=== PATIENT | female | born 1960 | race Caucasian/White ===

== ENCOUNTER 2020-04-27 | Outpatient (REF) | payer MEDICARE, OTHER, SELFPAY ==
[2020-05-03 17:07] LABS: HPV mRNA E6/E7 rflx Not Detected (Not Detected)
== END 2020-04-27 00:01 | disposition home or self-care (01) ==
LOC: HO.LNP
PROVIDERS: Visit Provider Obstetrics & Gynecology
DX: Z12.4 Encounter for screening for malignant neoplasm of cervix (principal); Z78.0 Asymptomatic menopausal state; Z12.31 Encounter for screening mammogram for malignant neoplasm of breast
CPT/HCPCS: 87624; 88142

== ENCOUNTER → 2020-04-27 08:32 | Outpatient (BNVA) | payer MEDICARE, SELFPAY | PROVIDERS: Visit Provider Obstetrics & Gynecology ==

== ENCOUNTER 2020-05-01 11:20 | Outpatient (REF) | payer MEDICARE, SELFPAY | END 2020-05-01 11:21 | disposition home or self-care (01) | LOC: HO.LAB 11:20 | PROVIDERS: Visit Provider Obstetrics & Gynecology | DX: Z13.89 Encounter for screening for other disorder (principal) ==

== ENCOUNTER 2020-07-05 10:35 | Outpatient (REF) | payer MEDICARE, OTHER, SELFPAY ==
[2020-07-05 14:41] LABS: TSH reflex Free T4 11.93 uIU/mL (0.32-4.0)
[2020-07-05 15:29] LABS: Free T4 (Free Thyroxine) 0.98 ng/dL (0.71-1.85)
== END 2020-07-05 10:36 | disposition home or self-care (01) ==
LOC: HO.LAB 10:35
PROVIDERS: PCP Nurse Practitioner Family; Visit Provider Nurse Practitioner Family
DX: E03.9 Hypothyroidism, unspecified (principal)
CPT/HCPCS: 36415; 84439; 84443

== ENCOUNTER 2020-07-16 09:31 | Outpatient (REF) | payer MEDICARE, OTHER, SELFPAY ==
--- NOTE | ~2020-07-16 | MM_ITS ---
EXAMINATION: MM SCREENING DIGITAL BREAST TOMOSYNTHESIS, BILATERAL CLINICAL INFORMATION: Screening. Asymptomatic. The lifetime risk of breast cancer based on the Tyrer-Cuzick Model is 7%. COMPARISON: Mammography: 07/28/2018, 07/08/2017, 06/18/2016 TECHNIQUE: Digital breast tomosynthesis is performed in both the craniocaudal and mediolateral oblique views along with computer-aided detection (CAD). Synthesized 2D images are generated from the tomosynthesis. Additional right MLO view is provided. FINDINGS: There are scattered areas of fibroglandular density (ACR BI-RADS breast composition Category b). There are no significant masses, abnormal calcifications, or other abnormalities. Parenchymal pattern is similar to prior studies. MM/MM tomosynthesis screening BI IMPRESSION: No mammographic evidence of malignancy. ASSESSMENT: BI-RADS 1: Negative RECOMMENDATION: Routine annual mammography screening. This patient's information was entered into a reminder system with a target due date for their next mammogram.
== END 2020-07-16 09:32 | disposition home or self-care (01) ==
LOC: HO.MAMMO 09:31
PROVIDERS: PCP Nurse Practitioner Family; Visit Provider Obstetrics & Gynecology
DX: Z12.31 Encounter for screening mammogram for malignant neoplasm of breast (principal)
CPT/HCPCS: 77063; 77067

== ENCOUNTER 2020-07-28 09:16 | Outpatient (REF) | payer MEDICARE, OTHER, SELFPAY ==
--- NOTE | ~2020-07-28 | XR_ITS ---
EXAMINATION: XR RIBS, LEFT CLINICAL INFORMATION: Pleurodynia COMPARISON: Previous chest CTA December 2018 and chest and right rib x-rays August 2017 TECHNIQUE: 3 views of the left ribs were obtained. FINDINGS: The cardiac and mediastinal contours are stable. The lungs are clear. There is no pleural effusion or pneumothorax. No left rib fracture is seen. There are degenerative changes of the thoracic spine. There is a catheter seen in the right chest and upper abdomen probably representing a SPECIAL LOAN OFFICER shunt catheter. This is unchanged. XR/XR ribs LT min 3V w CXR1V IMPRESSION: No evidence for acute disease in the chest. No rib fracture seen.
== END 2020-07-28 09:17 | disposition home or self-care (01) ==
LOC: HO.HMGCX 09:16
PROVIDERS: PCP Nurse Practitioner Family; Visit Provider Physician Assistant
DX: R07.81 Pleurodynia (principal)
CPT/HCPCS: 71101

== ENCOUNTER 2020-09-19 12:26 | Outpatient (REF) | payer MEDICARE, OTHER, SELFPAY ==
[2020-09-19 14:34] LABS: Alanine Aminotransferase 10 U/L (0-31); Albumin Level 4.1 g/dL (3.5-5.0); Alkaline Phosphatase 90 U/L (39-117); Anion Gap 12 (12-20); Aspartate Amino Transferase 15 U/L (5-31); Bilirubin Total 0.2 mg/dL (0.0-1.0); Blood Urea Nitrogen 11 mg/dL (9-16); Calcium 8.9 mg/dL (8.4-10.2); Carbon Dioxide 23 mmol/L (22-29); Chloride 113 mmol/L (96-108); Estimated Glomerular Filt Rate > 60; Glucose Fasting 79 mg/dL (60-99); Potassium 4.1 mmol/L (3.3-5.1); Sodium 144 mmol/L (135-145); Total Protein 6.8 g/dL (6.5-8.0)
[2020-09-19 14:56] LABS: TSH reflex Free T4 1.34 uIU/mL (0.32-4.0)
== END 2020-09-19 12:27 | disposition home or self-care (01) ==
LOC: HO.HMGCLDS 12:26
PROVIDERS: PCP Nurse Practitioner Family; Visit Provider Nurse Practitioner Family
DX: E03.9 Hypothyroidism, unspecified (principal)
CPT/HCPCS: 36415; 80053; 84443

== ENCOUNTER 2020-10-30 09:54 | Outpatient (REF) | payer MEDICARE, OTHER, SELFPAY ==
[2020-10-30 11:19] LABS: MANUAL DIFF FLAG NO
[2020-10-30 11:30] LABS: Basophils Percent Auto 0.5 % (0-2); Eosinophils Absolute Auto 0.1 X10*3/uL (0.0-0.4); Eosinophils Percent Auto 1.4 % (0-4); Hematocrit 38.5 % (37-47); Hemoglobin 12.5 g/dl (12.0-16.0); Imm Gran Abs Auto 0.03 X10*3/uL (0.00-0.03); Imm Gran Pct Auto 0.4 % (0.0-0.4); Lymphocytes Absolute Auto 1.6 X10*3/uL (1.2-4.9); Lymphocytes Percent Auto 19.8 % (20-40); Mean Corpuscular HGB Conc 32.5 g/dl (31.0-35.0); Mean Corpuscular Hemoglobin 29.7 pg (27.0-33.0); Mean Corpuscular Volume 91.4 fL (80-98); Mean Platelet Volume 10.3 fL (9.4-12.3); Monocytes Absolute Auto 0.4 X10*3/uL (0.1-1.2); Monocytes Percent Auto 5.3 % (2-11); Neutrophils Absolute Auto 5.9 X10*3/uL (2.0-8.3); Neutrophils Percent Auto 72.6 % (45-73); Platelet Count 227 X10*3/uL (160-400); Red Blood Count 4.21 X10*6/uL (4.20-5.50); Red Cell Distribution Width 14.8 % (11.0-16.0); White Blood Count 8.1 X10*3/uL (4.8-10.8)
[2020-10-30 11:56] LABS: Alanine Aminotransferase 13 U/L (0-31); Albumin Level 4.2 g/dL (3.5-5.0); Alkaline Phosphatase 99 U/L (39-117); Anion Gap 13 (12-20); Aspartate Amino Transferase 17 U/L (5-31); Bilirubin Total 0.5 mg/dL (0.0-1.0); Blood Urea Nitrogen 10 mg/dL (9-16); Calcium 9.1 mg/dL (8.4-10.2); Carbon Dioxide 24 mmol/L (22-29); Chloride 110 mmol/L (96-108); Estimated Glomerular Filt Rate > 60; Glucose Random 98 mg/dL (60-115); Sodium 143 mmol/L (135-145); Total Protein 7.2 g/dL (6.5-8.0)
[2020-10-30 13:52] LABS: Glucose Urine UA NEG (NEG); Leukocyte Esterase Urine NEG (NEG); Nitrite Urine NEG (NEG); PH 5.5 (5.0-8.0); Urine Blood NEG (NEG); Urine Ketones 5 MG/DL (NEG); Urine Protein NEG (NEG-TRACE)
[2020-10-30 13:53] LABS: Appearance Urine CLEAR; Color Urine YELLOW
== END 2020-10-30 09:55 | disposition home or self-care (01) ==
LOC: HO.HMGCLDS 09:54
PROVIDERS: PCP Nurse Practitioner Family; Visit Provider Nurse Practitioner Family
DX: E03.9 Hypothyroidism, unspecified (principal)
CPT/HCPCS: 36415; 80053; 81003; 84443; 85025

== ENCOUNTER → 2021-02-05 13:20 | Outpatient (BNVA) | payer MEDICARE, OTHER, SELFPAY | PROVIDERS: PCP Nurse Practitioner Family; Referring Provider Nurse Practitioner Family; Visit Provider Surgery | DX: D17.9 Benign lipomatous neoplasm, unspecified (principal) | CPT/HCPCS: 99202 ==

== ENCOUNTER 2021-03-07 07:40 | Outpatient (REF) | payer MEDICARE, SELFPAY ==
[2021-03-07 07:48] VITALS: BMI 25.7
[2021-03-07 07:49] VITALS: BP 118/61; PULSE 74; RESP 16; TEMP 37.1; O2SAT 100
[2021-03-07 08:40] VITALS: BP 159/63; PULSE 60; RESP 16; O2SAT 100
--- NOTE | 2021-03-07 08:44 | P.OP_ITS ---
Operative Note Operative Note Date of Service: 03/07/21 Narrative: Preoperative diagnosis: Lipoma right flank Postoperative diagnosis: same Procedure: excision of lipoma right flank Surgeon: Esau Burgos MD Director Strategic Account Management: none Anesthesia: lidocaine 1% with epinephrine Indications for procedure: 60-year-old female with a soft tissue mass in the right flank measuring approximately 3 cm in diameter Operative findings: lipoma 3 cm diameter Specimen: lipoma Estimated blood loss: 1 mL Complications: none Procedure details: patient was brought to the minor surgery suite placed in a left lateral decubitus position. Site of surgery was confirmed by the patient. Informed consent was confirmed. the skin was prepped with Betadine and draped in a sterile fashion. Local anesthesia consisting of lidocaine 1% with epinephrine was infiltrated over the lipoma in a transverse fashion. Incision was then made with a 15 blade and carried out through subcutaneous tissue up to the lipoma. Combination of blunt and sharp dissection was then used to dissect the lipoma from the surrounding subcutaneous tissue. The lesion was completely excised which extended down below the muscle fascia. The lipoma was passed off the table and sent to pathology for further examination. The fascia was reapproximated using interrupted 3-0 Polysorb sutures. Dermis was reapproximated using interrupted 3-0 Polysorb sutures. Skin was then closed using a running subcuticular 4-0 Polysorb suture. Steri-Strips 2 x 2 gauze and Tegaderm were then applied. The patient tolerated the procedure well. Sponge, instrument, and needle counts reported as correct. She was discharged home in stable condition.
== END 2021-03-07 07:41 | disposition home or self-care (01) ==
LOC: HO.MS 07:40
PROVIDERS: PCP Nurse Practitioner Family; Visit Provider Surgery
PROC: (CPT 21932; principal; 2021-03-07 08:00)
DX: D17.1 Benign lipomatous neoplasm of skin and subcutaneous tissue of trunk (principal)
CPT/HCPCS: 21932; 88304

== ENCOUNTER → 2021-03-14 11:31 | Outpatient (BNVA) | payer MEDICARE, SELFPAY | PROVIDERS: PCP Nurse Practitioner Family; Referring Provider Nurse Practitioner Family; Visit Provider Surgery | DX: Z48.3 Aftercare following surgery for neoplasm (principal); Z86.018 Personal history of other benign neoplasm | CPT/HCPCS: 99212 ==

== ENCOUNTER → 2021-03-19 13:41 | Outpatient (BNVA) | payer MEDICARE, SELFPAY | PROVIDERS: PCP Nurse Practitioner Family; Referring Provider Nurse Practitioner Family; Visit Provider Nurse Practitioner | DX: Z12.11 Encounter for screening for malignant neoplasm of colon (principal); Q44.6 Cystic disease of liver; I71.2 Thoracic aortic aneurysm, without rupture | CPT/HCPCS: 99212 ==

== ENCOUNTER → 2021-04-17 09:07 | Outpatient (REF) | payer MEDICARE, SELFPAY ==
--- NOTE | 2021-04-17 09:11 | CA_ITS ---
Transthoracic Echocardiogram Patient (Last, First, Middle): Blanca Palm, Gender: Female Date of : 1960 Age: 60 Procedure Date: 04/17/2021 Procedure Type: Transthoracic Echocardiogram Location: OP Height: 162.56 cm Weight: 68.04 kg BSA: 1.73 m2 Heart Rate: bpm BP: 122 / 68 mmHg Commission Associate: Referring MD: Esau Boyle [facility] Precision Jig Grinder: Raj Grant MD Symptoms: I71.2 - Thoracic aortic aneurysm, without rupture Study Quality: Good ECG Rhythm: Sinus Conclusions: - 1. Normal LV systolic function with grade 1 diastolic dysfunction 2. Normal cardiac valvular Doppler 3. Normal RV systolic pressure 4. No gross pericardial effusion Findings Left Ventricle Normal left ventricular size, thickness, and systolic function. The visually estimated ejection fraction is between 55-60%. Spectral Doppler is indicative of an impaired relaxation filling pattern. E/E prime ratio is <8, consistent with normal filling pressures. Evidence suggests grade I (mild) diastolic dysfunction. Right Ventricle Normal right ventricular cavity size and systolic function. Atria The left atrium is likely dilated. There is no evidence of interatrial shunt. The right atrium is normal in size. Aortic Valve Normal aortic valve structure and function. There is no aortic valve stenosis. There is no aortic valve regurgitation. Mitral Valve Normal mitral valve structure and function. There is trace mitral valve regurgitation. There is no mitral valve stenosis. Pulmonic Valve The pulmonic valve is likely normal. Tricuspid Valve Normal tricuspid valve structure. There is trace tricuspid valve regurgitation. Normal right atrial pressure. There is no evidence of pulmonary hypertension. Great Vessels All visible segments of the aorta are normal in size. The pulmonary artery was not well visualized. Venous The inferior vena cava is normal in size and collapses greater than 50% with inspiration. Pericardium/Pleural There is no evidence of pericardial effusion. Prior Study Comparison No significant change compared to prior study dated: 02/23/2019. Measurements 2D Linear Measurements IVSd: 0.95 0.6-0.9/0.6-1.0 cm LVIDd: 4.92 3.9-5.3/4.2-5.9 cm LVIDd Index: 2.84 2.4-3.2/2.2-3.1 cm/m2 LVIDs: 3.64 2.0-3.6 cm LVPWd: 0.97 0.7-1.1 cm Ao Root: 3.30 2.1-3.5 cm LA Diam: 3.20 2.7-3.8/3.0-4.0 cm LAIDs Index: 1.85 1.5-2.3 cm/m2 LV Mass: 208.37 67-162/88-224 g LV Mass Index: 120.45 43-95/49-115 g/m2 LVOT Diam: 2.20 3.0+(-)1.3 cm 2D Systolic Function EF 4C: 56.70 >55% EF 2C: 44.70 >55% Mitral Valve MV Pk E: 0.60 MV PK A: 0.75 MV Decel Time: 198.00 E/A: 0.80 E'Lateral: 8.38 E'Medial: 5.66 E/E' Med: 10.50 E/E' Lat: 7.10 PHT: 58.00 MVA PHT: 3.79 Decel Amador: 3.01 Aortic Valve AoV Pk Fredrick: 1.15 AoV Mn Fredrick: 0.78 AoV VTI: 0.31 AoV Pk Grad: 5.00 Aov Mn Grad: 3.00 KARLA Cont.VTI: 2.98 LVOT LVOT Pk Fredrick: 0.85 LVOT Mn Fredrick: 0.57 LVOT VTI: 0.24 LVOT Pk Grad: 3.00 LVOT Mn Grad: 2.00 LVOT Diam: 2.20 LVOT Area: 3.80 Diastolic Function MV Pk E: 0.60 MV Pk A: 0.75 E/A: 0.80 E'Medial: 5.66 E/E' Med: 10.50 E' Laterial: 8.38 E/E' Lat: 7.10 Tricuspid Valve TR Pk Fredrick: 1.96 TR Pk Grad: 15.00 RA Press: 3.00 RVSP: 18.00 Great Vessels Aorta Ao Root-2D: 3.30 2.0-3.7 cm Ao Asc: 3.50 2.1-3.4 cm Pulmonary Valve PV Pk Fredrick: 0.79 Peak PV Grad: 2.00 Updated in Other Vendor System with Status of Final Raj Grant MD electronically signed on 04/17/2021 12:51:09 PM with status of Final
== END ==
LOC: HO.CARD 09:07
PROVIDERS: Visit Provider Nurse Practitioner Family
DX: I71.2 Thoracic aortic aneurysm, without rupture (principal)
CPT/HCPCS: 93306

== ENCOUNTER 2021-04-20 12:46 | Outpatient (REF) | payer MEDICARE, SELFPAY ==
--- NOTE | ~2021-04-20 | XR_ITS ---
EXAMINATION: XR WRIST, LEFT CLINICAL INFORMATION: Pain post fall COMPARISON: None TECHNIQUE: Four views of the left wrist. FINDINGS: Bone alignment is normal. The bones appear osteopenic. There are 2 all densities projecting soft tissues of the dorsal wrist. Appearance is questionable for old trauma/old triquetral fracture. Clinical correlation is recommended. No definite acute fracture is seen. Joint spaces are normal. Soft tissues are otherwise normal. XR/XR wrist LT min 3V IMPRESSION: 2 small soft tissue ossification adjacent the dorsal wrist on the lateral view questionable for old triquetral fracture. Clinical correlation recommended. No definite acute fracture seen.
--- NOTE | ~2021-04-20 | XR_ITS ---
EXAMINATION: XR RIBS, LEFT CLINICAL INFORMATION: Pain post fall COMPARISON: Previous x-ray July 2020 TECHNIQUE: 3 views of the left ribs and one view of the chest were obtained. FINDINGS: Lungs are clear. No consolidation, pneumothorax, or pleural effusion. The cardiomediastinal silhouette and pulmonary vasculature are normal. Right chest catheter probably representing a CORRESPONDENCE SPECIALIST shunt catheter is unchanged. There are degenerative changes of the spine.. Ribs are intact. No fractures are identified. XR/XR ribs LT min 3V w CXR1V IMPRESSION: No evidence for acute disease in chest. No rib fracture seen.
== END 2021-04-20 12:47 | disposition home or self-care (01) ==
LOC: HO.HMGCX 12:46
PROVIDERS: PCP Nurse Practitioner Family; Visit Provider Physician Assistant
DX: M25.532 Pain in left wrist (principal); R07.81 Pleurodynia; Z91.81 History of falling
CPT/HCPCS: 71101; 73110

== ENCOUNTER → 2021-04-30 08:46 | Outpatient (BNVA) | payer MEDICARE, SELFPAY | PROVIDERS: PCP Nurse Practitioner Family; Visit Provider Advanced Practice Midwife | DX: Z13.89 Encounter for screening for other disorder (principal) ==

== ENCOUNTER 2021-05-07 09:07 | Outpatient (REF) | payer MEDICARE, SELFPAY ==
--- NOTE | ~2021-05-07 | US_ITS ---
EXAMINATION: US ABDOMEN COMPLETE CLINICAL INFORMATION: Thoracic aortic aneurysm. Congenital disease of liver. COMPARISON: CTA chest 01/04/2019. Ultrasound abdomen 02/25/2018 and 06/30/2013. TECHNIQUE: Real-time imaging of the abdominal viscera. FINDINGS: PANCREAS: Normal. ABDOMINAL AORTA: There is dilatation of the proximal abdominal aorta measuring 3.6 x 3.7 cm. The mid and distal abdominal aorta are normal in caliber. INFERIOR VENA CAVA: Visualized portions are normal. LIVER: Liver echotexture appears increased and heterogeneous. There are multiple cysts. The largest measures 7.6 x 5 x 7.3 cm in the medial segment of the left lobe and 2.1 x 2.8 x 2.3 cm in the right lobe. There is no biliary duct dilatation. GALLBLADDER: Normal. The gallbladder is physiologically distended without evidence of stones, sludge, polyps, wall thickening or pericholecystic fluid. COMMON BILE DUCT: Normal in caliber measuring 0.6 cm in diameter. RIGHT KIDNEY: There may be a small stone in the lower pole measuring 2 mm. No hydronephrosis. No renal calculi or focal parenchymal lesions. The kidney measures 10.1 cm in maximum dimension. LEFT KIDNEY: Normal. No hydronephrosis. No renal calculi or focal parenchymal lesions. The kidney measures 10.7 cm in maximum dimension. SPLEEN: Normal. The spleen measures 10.1 cm in maximum dimension. FREE FLUID: None. US/US abdomen complete IMPRESSION: Heterogeneous increased liver echotexture and multiple liver cysts. Question small right renal stone. Dilated proximal abdominal aorta, similar to previous exams.
== END 2021-05-07 09:08 | disposition home or self-care (01) ==
LOC: HO.HMGCX 09:07
PROVIDERS: PCP Nurse Practitioner Family; Visit Provider Nurse Practitioner
DX: I71.2 Thoracic aortic aneurysm, without rupture (principal); Q44.6 Cystic disease of liver
CPT/HCPCS: 76700

== ENCOUNTER 2021-07-22 10:34 | Outpatient (REF) | payer MEDICARE, SELFPAY ==
--- NOTE | ~2021-07-22 | MM_ITS ---
EXAMINATION: MM SCREENING DIGITAL BREAST TOMOSYNTHESIS, BILATERAL CLINICAL INFORMATION: Screening. Asymptomatic. Patient history of remote benign left breast surgery, 1989. The lifetime risk of breast cancer based on the Tyrer-Cuzick Model is 6%. COMPARISON: Mammography: 07/16/2020, 07/28/2018, 07/08/2017 TECHNIQUE: Digital breast tomosynthesis is performed in both the craniocaudal and mediolateral oblique views along with computer-aided detection (CAD). Synthesized 2D images are generated from the tomosynthesis. FINDINGS: There are scattered areas of fibroglandular density (ACR BI-RADS breast composition Category b). There are no significant masses, abnormal calcifications, or other abnormalities. No developing density or architectural abnormality. No significant changes. MM/MM tomosynthesis screening BI IMPRESSION: No mammographic evidence of malignancy. ASSESSMENT: BI-RADS 1: Negative RECOMMENDATION: Routine annual mammography screening. This patient's information was entered into a reminder system with a target due date for their next mammogram.
== END 2021-07-22 10:35 | disposition home or self-care (01) ==
LOC: HO.MAMMO 10:34
PROVIDERS: Visit Provider Nurse Practitioner Family
DX: Z12.31 Encounter for screening mammogram for malignant neoplasm of breast (principal)
CPT/HCPCS: 77063; 77067

== ENCOUNTER 2021-11-28 16:39 | Emergency (ER) | payer MEDICARE, MEDICAID, SELFPAY ==
--- NOTE | ~2021-11-28 | US_ITS ---
EXAMINATION: US VENOUS ULTRASOUND WITH DOPPLER LOWER EXTREMITY, LEFT CLINICAL INFORMATION: Dog bite. Pain. COMPARISON: None TECHNIQUE: Ultrasound of the deep veins is performed from the hip to the calf with compression sonography and color and pulse Doppler assessment. Spectral analysis with color-flow imaging is performed. FINDINGS: There is normal venous compression and respiratory variation and augmented flow. The visualized common femoral vein, superficial femoral vein, profunda femoral vein, popliteal vein, and the trifurcation region shows no evidence of deep venous thrombosis. There is no significant popliteal fossa cyst. If the patient's symptoms persist, followup ultrasound in 5 days 7 days might be of value to exclude proximal propagation from a non-visualized calf vein. US/US venous duplex LE LT IMPRESSION: No DVT demonstrated in the left lower extremity.
--- NOTE | ~2021-11-28 | XR_ITS ---
EXAMINATION: 1. LEFT MIDDLE DIGIT. 2. LEFT HAND. CLINICAL INFORMATION: Dog bite COMPARISON: None TECHNIQUE: 1. Left middle digit. 2 views 2. Left hand. 3 views. FINDINGS: 1. Left middle digit. No air in the soft tissue. No radiopaque foreign body. No acute osseous abnormality. 2. Left hand. No air in the soft tissue. No radiopaque foreign body. No acute osseous abnormality. Bone and joint are normal. XR/XR hand LT 2V IMPRESSION: 1. Left middle digit. Normal left middle digit. 2. Left hand. Normal left hand.
--- NOTE | ~2021-11-28 | XR_ITS ---
EXAMINATION: 1. LEFT MIDDLE DIGIT. 2. LEFT HAND. CLINICAL INFORMATION: Dog bite COMPARISON: None TECHNIQUE: 1. Left middle digit. 2 views 2. Left hand. 3 views. FINDINGS: 1. Left middle digit. No air in the soft tissue. No radiopaque foreign body. No acute osseous abnormality. 2. Left hand. No air in the soft tissue. No radiopaque foreign body. No acute osseous abnormality. Bone and joint are normal. XR/XR finger LT min 2V IMPRESSION: 1. Left middle digit. Normal left middle digit. 2. Left hand. Normal left hand.
[2021-11-28 16:53] VITALS: BP 154/79; PULSE 57; RESP 19; TEMP 36.6; O2SAT 98; BMI 26.6
[2021-11-28 17:21] LABS: MANUAL DIFF FLAG NO
[2021-11-28 17:35] LABS: Anion Gap 15 (12-20); Blood Urea Nitrogen 15 mg/dL (9-16); C Reactive Protein 3.97 mg/dL (< or = 0.50); Carbon Dioxide 26 mmol/L (22-29); Chloride 107 mmol/L (96-108); Creatinine Clr Calc Pharmacy 58.9; Estimated Glomerular Filt Rate > 60; Glucose Random 99 mg/dL (60-115); Potassium 3.6 mmol/L (3.3-5.1); Sodium 144 mmol/L (135-145)
[2021-11-28 17:41] LABS: Basophils Percent Auto 0.3 % (0-2); Eosinophils Percent Auto 0.1 % (0-4); Hematocrit 34.8 % (37.0-47.0); Hemoglobin 11.6 g/dl (12.0-16.0); Imm Gran Abs Auto 0.09 X10*3/uL (0.00-0.03); Imm Gran Pct Auto 0.9 % (0.0-0.4); Lymphocytes Absolute Auto 2.6 X10*3/uL (1.2-4.9); Lymphocytes Percent Auto 25.6 % (20-40); Mean Corpuscular HGB Conc 33.3 g/dl (31.0-35.0); Mean Corpuscular Hemoglobin 30.1 pg (27.0-33.0); Mean Corpuscular Volume 90.2 fL (80.0-98.0); Mean Platelet Volume 9.7 fL (9.4-12.3); Monocytes Absolute Auto 0.5 X10*3/uL (0.1-1.2); Monocytes Percent Auto 4.5 % (2-11); Neutrophils Percent Auto 68.6 % (45-73); Platelet Count 207 X10*3/uL (160-400); Red Blood Count 3.86 X10*6/uL (4.20-5.50); Red Cell Distribution Width 14.6 % (11.0-16.0); White Blood Count 10.2 X10*3/uL (4.8-10.8)
[2021-11-28 19:15] VITALS: BP 133/58; PULSE 53; RESP 20; TEMP 36.6; O2SAT 100
--- NOTE | 2021-11-28 19:49 | ED_ITS ---
HPI - Wound/Laceration General Chief Complaint: Wound/Laceration Stated Complaint: left hand pain infected dog bite Time Seen by Provider: 11/28/21 18:37 Source: patient Mode of arrival: ambulatory Limitations: no limitations History of Present Illness HPI narrative: 61-year-old female who presents emergency department for evaluation of increased swelling and increased pain to her left middle and ring finger after a dog bite that occurred 3 days prior. The patient was breaking up a dog fight and she was bit on the left hand, right hand and left calf. The patient was seen at an urgent care clinic 3 days prior. She states that her wounds were soaked and cleaned. She was then started on amoxicillin 825/125 and she has been taking these medications 2 days. She has been applying ice to her left hand to reduce the swelling. She states that despite this treatment her left middle finger and ring finger have gotten more swollen and more painful. She states that she can move her fingers with some limitation secondary to pain. The patient was bit in the left calf but she states she is now having left thigh pain. She states the pain is a constant, cramping like sensation which is worse with movement. She has not noticed any increased signs for calf. She denied chest pain, shortness of breath, dyspnea exertion, fever, chills or cough. Related Data Previous Rx's Medication Instructions Recorded levothyroxine 137 mcg tablet 137 mcg PO DAILY #90 tabs 05/23/21 cephalexin 500 mg capsule 500 mg PO Q12H 5 days #10 caps 11/04/21 venlafaxine 75 mg capsule,extended 75 mg PO DAILY 90 days #90 caps 11/21/21 release 24 hr amoxicillin 875 mg-potassium 1 tab PO BID #14 tabs 11/27/21 clavulanate 125 mg tablet amoxicillin 875 mg-potassium 1 tab PO Q12H 7 days #14 tabs 11/28/21 clavulanate 125 mg tablet Allergies Allergy/AdvReac Type Severity Reaction Status Date / Time Opioids - Morphine Analogues Allergy Unknown VOMIT/RASH Verified 11/27/21 09:05 [OPIOIDS - MORPHINE ANALOGUES] Sulfa (Sulfonamide Allergy Unknown RASH, hives Verified 11/27/21 09:05 Antibiotics) [SULFA (SULFONAMIDE ANTIBIOTICS)] Review of Systems Review of Systems: Yes all other systems are reviewed and are negative PMF Past Medical History PMF Narrative: Past medical history: Hypothyroidism, hydrocephalus diagnosed at age 58, the patient has a AUTOMOBILE ACCESSORIES INSTALLER shunt. Anxiety, depression. Past surgical history: AUTOMOBILE ACCESSORIES INSTALLER shunt at age 58. Social history: The patient smokes 5 cigarettes per day times 49 years. She denies alcohol use. She smokes marijuana 3 times a week. Medical History Anxiety and depression Ascending aortic aneurysm Hydrocephalus Smoking Surgical History Hx of tonsillectomy Status post lumbar spine surgery for decompression of spinal cord AUTOMOBILE ACCESSORIES INSTALLER (ventriculoperitoneal) shunt status Family History Family History Mother Colon cancer Social History Social History Alcohol intake: never Patient Tobacco Use Status: Current everyday Tobacco user Cigarettes Per Day: 10 Smoked in Last 30 Days: Yes Use of substances other than those prescribed or required for medical reasons: Yes Substance Use Type: Marijuana Advance Directives: No Advance Directives Information Provided: No Patient : No Gender identity: Female Physical Exam Vital Signs: Vital Signs: Last Vital Signs Temp 97.8 F 11/28/21 19:15 Pulse 53 11/28/21 19:15 Resp 20 11/28/21 19:15 BP 133/58 L 11/28/21 19:15 Pulse Ox 100 11/28/21 19:15 O2 Del Method 11/28/21 19:15 BMI result Body Mass Index 26.6 Const: Other: Awake, alert, female patient, very pleasant cooperative, does not appear to be in distress HEENT: Head: Yes normocephalic and Yes atraumatic Eyes: General: appearance normal, both eyes and all related structures Chest: Chest palpation & inspection: normal inspection of the chest Resp: Effort & Inspection: normal respiratory effort Extrem: Other: The patient's middle of the left hand revealed swelling over the entire finger with increased swelling over the proximal phalanx and PIP joint Course Course Course Narrative: 61-year-old female who presents emergency department for evaluation increased swelling of her left middle and ring finger after sustaining a dog bite 3 days prior. The patient has been on Augmentin 875/125 for 2 days. Patient's apply ice to her hand to reduce the swelling. Physical examination did reveal cellulitis with soft tissue swelling of the left middle and ring finger. The patient's laboratory evaluation revealed a normal WBC. She had an elevated CRP of 3.97 an elevated ESR of 36. She was given Unasyn 3 g IV. I did discuss the patient's presentation over tiger text with our covering orthopedic doctor, Dr. Bo. The patient was placed in splint to immobilize her fingers hand and wrist. The patient was advised to continue taking Augmentin twice a day for 10 days. Patient also had pain in her left thigh and did sustain a dog bite to the left calf. I did obtain a duplex ultrasound of the left lower extremity there was no DVT noted. I did discuss the limitations ultrasounded detecting DVTs with the patient and I did tell the patient if she had increased pain or swelling in her left thigh that she will need a repeat duplex ultrasound in 4-7 days also I did discuss signs and symptoms of pulmonary embolism with the patient. Patient was advised to contact the orthopedic group in the morning for follow-up and evaluation by our hand surgeon. Patient was given printed and verbal instructions and discharged home. MDM - Wound/Laceration Lab Data Result diagrams: 11/28/21 17:13 11/28/21 17:13 Labs: Lab Results 11/28/21 11/28/21 11/28/21 Range/Units 17:13 17:13 19:27 WBC 10.2 (4.8-10.8) X10*3/uL RBC 3.86 L (4.20-5.50) X10*6/uL Hgb 11.6 L (12.0-16.0) g/dl Hct 34.8 L (37.0-47.0) % MCV 90.2 (80.0-98.0) fL MCH 30.1 (27.0-33.0) pg MCHC 33.3 (31.0-35.0) g/dl RDW 14.6 (11.0-16.0) % Plt Count 207 (160-400) X10*3/uL MPV 9.7 (9.4-12.3) fL Immature Gran % (Auto) 0.9 H (0.0-0.4) % Neut % (Auto) 68.6 (45-73) % Lymph % (Auto) 25.6 (20-40) % [place] % (Auto) 4.5 (2-11) % Eos % (Auto) 0.1 (0-4) % Baso % (Auto) 0.3 (0-2) % Lymph # (Auto) 2.6 (1.2-4.9) X10*3/uL [place] # (Auto) 0.5 (0.1-1.2) X10*3/uL Eos # (Auto) 0.0 (0.0-0.4) X10*3/uL Baso # (Auto) 0.0 (0.0-0.2) X10*3/uL Abs Immat Gran (auto) 0.09 H (0.00-0.03) X10*3/uL Absolute Neuts (auto) 7.0 (2.0-8.3) x10*3/uL Absolute Nucleated RBC 0.000 (0.0-0.012) X10*3/uL Nucleated RBC % (auto) 0.0 (0.0-0.2) /100WBC ESR 36 H (0-20) MM/HR Sodium 144 (135-145) mmol/L Potassium 3.6 (3.3-5.1) mmol/L Chloride 107 (96-108) mmol/L Carbon Dioxide 26 (22-29) mmol/L Anion Gap 15 (12-20) BUN 15 (9-16) mg/dL Creatinine 0.94 (0.5-1.4) mg/dL Estim Creat Clear Calc 58.9 Estimated GFR > 60 Random Glucose 99 (60-115) mg/dL Calcium 9.0 (8.4-10.2) mg/dL C-Reactive Protein 3.97 H (< or = 0.50) mg/dL Discharge Plan Discharge Clinical Impression: Infected hand, Dog bite, Acute pain of left thigh Patient Disposition: Home, Self-Care Instructions: Animal Bite (ED) Additional Instructions: Your laboratory evaluation revealed elevated inflammatory markers (ESR and CRP) otherwise they were unremarkable. The duplex ultrasound of your left lower extremity revealed no blood clot. Sometimes an ultrasound can miss a blood clot initially. If you continue to have pain or if you get increased pain, swelling of your thigh over the next 4 days then you should return to the emergency department for repeat ultrasound. Also if you develops signs of a blood clot to your lungs such as fever, cough, chest pain, shortness of breath then you should return to the emergency department for re-evaluation as well. You received Unasyn 3 g IV. You were placed in a splint. Keep the splint on until you are re-evaluated by the orthopedic doctor's. Take the splint off 4 times a day to apply a heating pad on low to your hand to help increase the blood flow to the hand. Keep your hand elevated to help blood flow out of your hand as well. Watch for signs of worsening hand infection which would include increased redness, increased swelling, increased pain, fever, chills, numbness or weakness of the fingers. Continue taking your Augmentin. Call the orthopedic surgeon off tomorrow to make a follow-up. When you talk to the office let them know that I spoke to the on-call orthopedic surgeon, Dr. Bo. You need to be re-evaluated within the next 3-4 days by the hand surgeon Dr. Woodall or by someone in the office to make sure that you are getting better. If your symptoms are getting worse then return to emergency department Take ibuprofen 200 mg pills, 3 pills every 6 hours as needed for pain. Take Tylenol (acetaminophen) 500 mg pills, 2 pills every 4 to 6 hours as needed for pain. Prescriptions: New amoxicillin-pot clavulanate 875-125 mg tablet 1 tab PO Q12H 7 Days Qty: 14 0RF No Action levothyroxine 137 mcg tablet 137 mcg PO DAILY Qty: 90 3RF cephalexin 500 mg capsule 500 mg PO Q12H 5 Days Qty: 10 0RF venlafaxine 75 mg capsule,extended release 24hr 75 mg PO DAILY 90 Days Qty: 90 0RF amoxicillin-pot clavulanate 875-125 mg tablet 1 tab PO BID Qty: 14 0RF Interventions: ED Discharge Assessment Last Done: 11/28/21 22:03 Discharge Date/Time: 11/28/21 22:04
--- NOTE | 2021-11-28 19:52 | PC.NURSE ---
Patient had an IV inserted 20fr. Patient labs were drawn, and vs were stable. Patient had a dog bites on her hand and the lacerations were not deep although, patient's hand was swollen.
--- NOTE | 2021-11-28 19:53 | PC.NURSE ---
pt was taken to ultrasound so abx will be hung when she returns.
[2021-11-28] MEDS: Ampicillin Sodium/Sulbactam Na 3 GM in 0.9 % Sodium Chloride 100 ML IV (20:08)
--- NOTE | 2021-11-28 20:11 | PC.NURSE ---
pt medicated per order
[2021-11-28 20:20] LABS: Erythrocyte Sedimentation Rate 36 MM/HR (0-20)
--- NOTE | 2021-11-28 22:03 | PC.NURSE ---
pt splinted and ginger wrap performed by provider
== END 2021-11-28 22:04 | disposition home or self-care (01) ==
PROVIDERS: Emergency Provider Emergency Medicine Emergency Medical Services; PCP Nurse Practitioner Family
DX: L03.012 Cellulitis of left finger (principal); S61.452A Open bite of left hand, initial encounter; S81.852A Open bite, left lower leg, initial encounter; S61.451A Open bite of right hand, initial encounter; W54.0XXA Bitten by dog, initial encounter; M79.652 Pain in left thigh; Y93.9 Activity, unspecified; Y92.9 Unspecified place or not applicable; Y99.9 Unspecified external cause status
CPT/HCPCS: 36415; 73120; 73140; 80048; 85025; 85652; 86140; 87040; 93971; 96365; 99284; J0295

== ENCOUNTER 2022-01-07 09:52 | Outpatient (REF) | payer MEDICARE, MEDICAID, SELFPAY ==
[2022-01-07 11:20] LABS: MANUAL DIFF FLAG NO
[2022-01-07 11:30] LABS: Basophils Absolute Auto 0.1 X10*3/uL (0.0-0.2); Basophils Percent Auto 0.7 % (0-2); Eosinophils Absolute Auto 0.2 X10*3/uL (0.0-0.4); Eosinophils Percent Auto 2.6 % (0-4); Hematocrit 37.9 % (37.0-47.0); Hemoglobin 12.3 g/dl (12.0-16.0); Imm Gran Abs Auto 0.02 X10*3/uL (0.00-0.03); Imm Gran Pct Auto 0.3 % (0.0-0.4); Lymphocytes Percent Auto 28.7 % (20-40); Mean Corpuscular HGB Conc 32.5 g/dl (31.0-35.0); Mean Corpuscular Hemoglobin 29.7 pg (27.0-33.0); Mean Corpuscular Volume 91.5 fL (80.0-98.0); Mean Platelet Volume 9.7 fL (9.4-12.3); Monocytes Absolute Auto 0.5 X10*3/uL (0.1-1.2); Monocytes Percent Auto 6.9 % (2-11); Neutrophils Absolute Auto 4.2 x10*3/uL (2.0-8.3); Neutrophils Percent Auto 60.8 % (45-73); Platelet Count 221 X10*3/uL (160-400); Red Blood Count 4.14 X10*6/uL (4.20-5.50); Red Cell Distribution Width 14.7 % (11.0-16.0)
[2022-01-07 11:36] LABS: Appearance Urine Clear; Color Urine Yellow; Glucose Urine UA Negative (Negative); Leukocyte Esterase Urine Negative (Negative); Nitrite Urine Negative (Negative); PH 6.5 (5.0-9.0); Specific Gravity - Urine 1.015 (1.005-1.025); Urine Blood Negative (Negative); Urine Ketones Negative (Negative); Urine Protein Negative (Neg-Trace)
[2022-01-07 11:52] LABS: Alanine Aminotransferase 12 U/L (0-31); Albumin Level 4.1 g/dL (3.5-5.0); Alkaline Phosphatase 103 U/L (39-117); Anion Gap 15 (12-20); Aspartate Amino Transferase 16 U/L (5-31); Bilirubin Total 0.3 mg/dL (0.0-1.0); Blood Urea Nitrogen 19 mg/dL (9-16); Calcium 8.8 mg/dL (8.4-10.2); Carbon Dioxide 23 mmol/L (22-29); Chloride 107 mmol/L (96-108); Cholesterol 226 mg/dL; Estimated Glomerular Filt Rate > 60; Glucose Fasting 88 mg/dL (60-99); HDL Cholesterol 70 mg/dL; LDL Cholesterol Calculated 141 mg/dl; Potassium 4.3 mmol/L (3.3-5.1); Sodium 141 mmol/L (135-145); Triglycerides 75 mg/dL
[2022-01-07 12:02] LABS: TSH reflex Free T4 21.14 uIU/mL (0.32-4.0)
[2022-01-07 13:12] LABS: Free T4 (Free Thyroxine) 0.91 ng/dL (0.71-1.85)
== END 2022-01-07 09:53 | disposition home or self-care (01) ==
LOC: HO.HMGCLDS 09:52
PROVIDERS: PCP Nurse Practitioner Family; Visit Provider Nurse Practitioner Family
DX: E03.9 Hypothyroidism, unspecified (principal); F33.9 Major depressive disorder, recurrent, unspecified; F17.200 Nicotine dependence, unspecified, uncomplicated
CPT/HCPCS: 36415; 80053; 80061; 81003; 84439; 84443; 85025

== ENCOUNTER 2022-06-18 08:59 | Outpatient (REF) | payer MEDICARE, MEDICAID, SELFPAY ==
[2022-06-18 12:54] LABS: Alanine Aminotransferase 11 U/L (0-31); Alkaline Phosphatase 96 U/L (39-117); Anion Gap 12 (12-20); Aspartate Amino Transferase 14 U/L (5-31); Bilirubin Total 0.5 mg/dL (0.0-1.0); Blood Urea Nitrogen 10 mg/dL (9-16); Carbon Dioxide 24 mmol/L (22-29); Chloride 111 mmol/L (96-108); Cholesterol 205 mg/dL; Estimated Glomerular Filt Rate > 60; Glucose Fasting 91 mg/dL (60-99); HDL Cholesterol 62 mg/dL; LDL Cholesterol Calculated 127 mg/dl; Potassium 4.2 mmol/L (3.3-5.1); Sodium 143 mmol/L (135-145); TSH reflex Free T4 31.01 uIU/mL (0.32-4.0); Total Protein 6.7 g/dL (6.5-8.0); Triglycerides 83 mg/dL
[2022-06-18 13:24] LABS: Free T4 (Free Thyroxine) 0.89 ng/dL (0.71-1.85)
[2022-06-21 22:44] LABS: A. Phagocytphilium DNA,RT-PCR NOT DETECTED (NOT DETECTED); Babesia Microti DNA, RT-PCR NOT DETECTED (NOT DETECTED); Borrelia Miyamotoi,DNA RT-PCR NOT DETECTED (NOT DETECTED); E.Chaffeensis DNA RT-PCR NOT DETECTED (NOT DETECTED); Lyme(Borrelia ssp)DNA RT-PCR NOT DETECTED (NOT DETECTED)
== END 2022-06-18 09:00 | disposition home or self-care (01) ==
LOC: HO.HMGCLDS 08:59
PROVIDERS: PCP Nurse Practitioner Family; Visit Provider Nurse Practitioner Family
DX: E78.5 Hyperlipidemia, unspecified (principal); E03.9 Hypothyroidism, unspecified; T14.8XXA Other injury of unspecified body region, initial encounter; L30.9 Dermatitis, unspecified; R53.83 Other fatigue; W57.XXXA Bitten or stung by nonvenomous insect and other nonvenomous arthropods, initial encounter; X58.XXXA Exposure to other specified factors, initial encounter; Y93.9 Activity, unspecified; Y92.9 Unspecified place or not applicable; Y99.9 Unspecified external cause status; Z20.2 Contact with and (suspected) exposure to infections with a predominantly sexual mode of transmission
CPT/HCPCS: 36415; 80053; 80061; 84439; 84443; 87798; 87801

== ENCOUNTER 2022-09-03 08:26 | Outpatient (REF) | payer MEDICARE, MEDICAID, SELFPAY ==
--- NOTE | ~2022-09-03 | MM_ITS ---
EXAMINATION: BONE DENSITOMETRY CLINICAL INDICATION: Vitamin D deficiency, unspecified. COMPARISON: Baseline BD dated 03/03/2018. TECHNIQUE: Using a [employer] DXA System (software version: 13.1) manufactured by [employer], dual-energy x-ray absorptiometry was performed of the lumbar spine and left hip. The images are of good technical quality. Summary results are attached. FINDINGS: AP SPINE L1-L3 (excluding L4): The data of L1-L4 has been changed to exclude the L4 vertebral body, because hardware at this level may cause overestimation of lumbar spine density. Current: BMD 1.051 g/cm2, Z-score -0.1, T-score -1.0, normal, 2.6% increase from baseline (<5% change is not significant). Baseline: BMD 1.024 g/cm2. LEFT FEMUR, NECK: Current: BMD 0.796 g/cm2, Z-score -0.8, T-score -1.7, osteopenia. Baseline: BMD 0.784 g/cm2. LEFT FEMUR, TOTAL: Current: BMD 0.815 g/cm2, Z-score -0.9, T-score -1.5, osteopenia, 1.4% increase from baseline (<5% change is not significant). Baseline: BMD 0.804 g/cm2. IDENTIFIED RISK FACTORS: Menopause, history of fracture (adult), tobacco use (current smoker), low calcium intake. HISTORY OF FRACTURE: Ribs. MEDICATIONS: Multivitamin. MM/XR DEXA axial skeleton IMPRESSION: 1. DIAGNOSIS: Osteopenia based on the lowest T-score value of -1.7 in the femoral neck applying World Health Organization criteria. 2. 10-YEAR FRACTURE RISK PREDICTION, FRAX: Major osteoporotic fracture (clinical spine, forearm, hip or shoulder) 15.6%. Hip fracture 3.1%. 3. Treatment Recommendations: NOF guidelines recommend consideration for treatment in postmenopausal women and men age 50 and older presenting with the following: -A hip or vertebral (clinical or morphometric) fracture. -T-score less than or equal to -2.5 at the femoral neck or spine after appropriate evaluation to exclude secondary causes. -Low bone mass at the hip or spine and a 10-year fracture probability by FRAX of greater than or equal to 3% for hip fracture or greater than or equal to 20% for major osteoporotic fracture based on the [place] adapted WHO algorithm. 4. Other Recommendations: All treatment decisions require clinical judgment and consideration of individual patient factors, including patient preferences, comorbidities, previous drug use, risk factors not captured in the FRAX model (e.g. frailty, falls, vitamin D deficiency, increased bone turnover, interval significant decline in bone density) and possible under or overestimation of fracture risk by FRAX. Additional medical evaluation for secondary cause of low bone mineral density may be appropriate. FUTURE SCAN RECOMMENDATION: People with diagnosed cases of osteoporosis or at high risk for fracture should have regular bone mineral density tests. For patients eligible for Medicare, routine testing is allowed once every 2 years. The testing frequency can be increased to one year for patients who have rapidly progressing disease, those who are receiving or discontinuing medical therapy to restore bone mass, or have additional risk factors.
== END 2022-09-03 08:27 | disposition home or self-care (01) ==
LOC: HO.MAMMO 08:26
PROVIDERS: PCP Nurse Practitioner Family; Visit Provider Nurse Practitioner Family
DX: Z13.820 Encounter for screening for osteoporosis (principal); Z78.0 Asymptomatic menopausal state; E55.9 Vitamin D deficiency, unspecified
CPT/HCPCS: 77080

== ENCOUNTER 2022-09-10 14:00 | Outpatient (REF) | payer MEDICARE, MEDICAID, SELFPAY ==
--- NOTE | ~2022-09-10 | MM_ITS ---
EXAMINATION: MM SCREENING DIGITAL BREAST TOMOSYNTHESIS, BILATERAL CLINICAL INFORMATION: Screening. Asymptomatic. The lifetime risk of breast cancer based on the Tyrer-Cuzick Model is 6%. COMPARISON: Mammography: 07/22/2021, 07/16/2020, 07/28/2018 TECHNIQUE: Digital breast tomosynthesis is performed in both the craniocaudal and mediolateral oblique views along with computer-aided detection (CAD). Synthesized 2D images are generated from the tomosynthesis. Additional bilateral MLO views are provided. FINDINGS: There are scattered areas of fibroglandular density (ACR BI-RADS breast composition Category b). There are no significant masses, abnormal calcifications, or other abnormalities. Parenchymal pattern is similar to prior studies. There is no developing density or architectural abnormality. The axilla and skin contours are unremarkable. No significant changes. MM/MM tomosynthesis screening BI IMPRESSION: No mammographic evidence of malignancy. ASSESSMENT: BI-RADS 1: Negative RECOMMENDATION: Routine annual mammography screening. This patient's information was entered into a reminder system with a target due date for their next mammogram.
== END 2022-09-10 14:01 | disposition home or self-care (01) ==
LOC: HO.MAMMO 14:00
PROVIDERS: PCP Nurse Practitioner Family; Visit Provider Nurse Practitioner Family
DX: Z12.31 Encounter for screening mammogram for malignant neoplasm of breast (principal)
CPT/HCPCS: 77063; 77067

== ENCOUNTER 2022-09-11 10:32 | Outpatient (REF) | payer MEDICARE, MEDICAID, SELFPAY ==
[2022-09-11 10:47] LABS: MANUAL DIFF FLAG NO
[2022-09-11 11:07] LABS: Basophils Percent Auto 0.5 % (0-2); Eosinophils Percent Auto 0.1 % (0-4); Hematocrit 38.7 % (37.0-47.0); Hemoglobin 12.8 g/dl (12.0-16.0); Imm Gran Abs Auto 0.03 X10*3/uL (0.00-0.03); Imm Gran Pct Auto 0.4 % (0.0-0.4); Lymphocytes Absolute Auto 1.8 X10*3/uL (1.2-4.9); Lymphocytes Percent Auto 21.5 % (20-40); Mean Corpuscular HGB Conc 33.1 g/dl (31.0-35.0); Mean Corpuscular Hemoglobin 29.7 pg (27.0-33.0); Mean Corpuscular Volume 89.8 fL (80.0-98.0); Mean Platelet Volume 9.8 fL (9.4-12.3); Monocytes Absolute Auto 0.4 X10*3/uL (0.1-1.2); Monocytes Percent Auto 4.9 % (2-11); Neutrophils Absolute Auto 6.1 x10*3/uL (2.0-8.3); Neutrophils Percent Auto 72.6 % (45-73); Platelet Count 234 X10*3/uL (160-400); Red Blood Count 4.31 X10*6/uL (4.20-5.50); Red Cell Distribution Width 13.5 % (11.0-16.0); White Blood Count 8.4 X10*3/uL (4.8-10.8)
[2022-09-11 11:23] LABS: Appearance Urine Clear; Color Urine Yellow; Glucose Urine UA Negative (Negative); Leukocyte Esterase Urine Trace (Negative); Nitrite Urine Negative (Negative); PH 6.5 (5.0-9.0); Specific Gravity - Urine <= 1.005 (1.005-1.025); UMIC TRIGGER UACC YES; Urine Blood Negative (Negative); Urine Ketones Negative (Negative); Urine Protein Negative (Neg-Trace)
[2022-09-11 11:28] LABS: Bacteria Urine None Seen (None Seen); Hyaline Casts Urine 0-2 /LPF (0-2); RBC Urine 0-2 /HPF (0-2); WBC Urine 0-5 /HPF (0-5)
[2022-09-11 11:54] LABS: Alanine Aminotransferase 13 U/L (0-31); Albumin Level 4.1 g/dL (3.5-5.0); Alkaline Phosphatase 103 U/L (39-117); Anion Gap 14 (12-20); Aspartate Amino Transferase 14 U/L (5-31); Bilirubin Total 0.5 mg/dL (0.0-1.0); Blood Urea Nitrogen 15 mg/dL (9-16); Calcium 9.2 mg/dL (8.4-10.2); Carbon Dioxide 21 mmol/L (22-29); Chloride 108 mmol/L (96-108); Cholesterol 191 mg/dL; Estimated Glomerular Filt Rate > 60; Glucose Fasting 94 mg/dL (60-99); HDL Cholesterol 55 mg/dL; LDL Cholesterol Calculated 114 mg/dl; Potassium 3.9 mmol/L (3.3-5.1); Sodium 139 mmol/L (135-145); Total Protein 7.4 g/dL (6.5-8.0); Triglycerides 114 mg/dL
[2022-09-11 11:59] LABS: TSH reflex Free T4 2.97 uIU/mL (0.32-4.0); Vitamin D 25-OH Total 31.4 ng/mL (>30)
== END 2022-09-11 10:33 | disposition home or self-care (01) ==
LOC: HO.LAB 10:32
PROVIDERS: PCP Nurse Practitioner Family; Visit Provider Nurse Practitioner Family
DX: Z00.00 Encounter for general adult medical examination without abnormal findings (principal); E03.9 Hypothyroidism, unspecified; E55.9 Vitamin D deficiency, unspecified; Z78.0 Asymptomatic menopausal state
CPT/HCPCS: 36415; 80053; 80061; 81001; 82306; 84443; 85025

== ENCOUNTER 2022-09-12 09:50 | Outpatient (REF) | payer MEDICARE, MEDICAID, SELFPAY ==
--- NOTE | ~2022-09-12 | CT_ITS ---
EXAMINATION: CTA ANGIOGRAM, CHEST CLINICAL INFORMATION: Aneurysm of the ascending aorta. COMPARISON: CTA chest 01/04/2019 TECHNIQUE: Multidetector volumetric CT imaging of the chest was obtained both before as well as after the administration of 50 mL of Omnipaque 350 intravenous contrast without immediate adverse reactions. Axial MIP volume rendering provided. Sagittal and coronal reformatted images were obtained. Additional 2-D coronal and sagittal reformatted images and axial 3-D maximum intensity projection MIP images are generated on the CT workstation. This CT examination was performed using dose optimization techniques as appropriate, variously including the following: *Automated exposure control *Adjustment of mA and/or kV according to patient size (this includes techniques or standardized protocols for targeted exams where dose is matched to indication/reason for exam; i.e. extremities or head) *Use of iterative reconstruction technique DLP: 130 mGy-cm VASCULAR FINDINGS: Compared to the prior study, there has been no significant interval change. Again noted is mild dilatation of the ascending aorta with a maximal transverse dimension of about 3.8 cm. This was not obtained on the 3-D model but in the axial plane which can overestimate the diameter. For patient of 62 years of age, maximal dimension of the ascending aorta should be 4.1 cm, and this is well within normal limits. Three-vessel branching pattern of the aortic arch is seen with widely patent great vessels. The aorta at the diaphragmatic hiatus is mildly dilated at 2.8 cm. The small visualized portion of the abdominal aorta appears mildly enlarged with maximal dimension of the upper abdominal aorta of about 3.4 cm. The celiac is included which is patent. No other abdominal aortic branches are included on this exam. The pulmonary arteries are not opacified. The pulmonary veins appear unremarkable. Coronary artery calcifications are present. NONVASCULAR FINDINGS: LUNGS: A few tiny micronodules are seen along with some vascular calcifications. MEDIASTINUM: No mediastinal or hilar lymphadenopathy. PLEURA: There is no pleural effusion. No pleural mass or thickening. AXILLA/CHEST WALL: No lymphadenopathy. Catheter is present tunneled in the anterior chest wall presumably a COMPRESSION MOLDING MACHINE OPERATOR shunt. UPPER ABDOMEN: Simple water density hepatic cysts are present. No other abnormality is seen. OSSEOUS STRUCTURES: Mild degenerative changes in the spine. No bony destructive lesions. CT/CT angio chest aorta IMPRESSION: 1. There is mild dilatation of the ascending aorta with maximal dimension of 3.8 cm. For patient of 62 years of age, maximal dimension should be 4.1 cm. 2. Incidental note made of mild dilatation of the upper abdominal aorta. 3. Incidental note made of coronary artery calcifications, benign hepatic cysts and COMPRESSION MOLDING MACHINE OPERATOR shunt. 4. No evidence of pulmonary emboli. Fleischner guidelines were followed.
[2022-09-12] MEDS: iohexoL 350 MG/ML 100 ML INFUS..BTL IV (11:03)
== END 2022-09-12 09:51 | disposition home or self-care (01) ==
LOC: HO.CT 09:50
PROVIDERS: PCP Nurse Practitioner Family; Visit Provider Nurse Practitioner Family
DX: I71.21 Aneurysm of the ascending aorta, without rupture (principal)
CPT/HCPCS: 71275; Q9967

== ENCOUNTER 2022-10-17 14:17 | Outpatient (AMB) | payer MEDICARE, MEDICAID, SELFPAY ==
--- NOTE | 2022-10-17 14:20 | AM.OFFWIN_ITS ---
Intake Vital Signs 10/17/22 14:24 Height 5 ft 4 in BP 122/62 Blood Pressure Location Lt brachial Position Sitting Pulse 51 Pulse Source Pulse Oximeter Temp 96.4 F L Temp Source Temporal Artery Scan Pulse Oximetry (%) 99 Oxygen Delivery Method Room Air Intake Visit Reasons: EP UTI? (lobby) Intake Note: Pt is here c/o possible UTI. Patient Tobacco Use Status: Current everyday Tobacco user Allergies Opioids - Morphine Analogues [OPIOIDS - MORPHINE ANALOGUES] Allergy (Unknown, Verified 10/17/22 14:24) VOMIT/RASH Sulfa (Sulfonamide Antibiotics) [SULFA (SULFONAMIDE ANTIBIOTICS)] Allergy (Unknown, Verified 10/17/22 14:24) RASH, hives Do you need a note to return to daycare/school/sports/work: No HPI HPI Comments History of Present Illness Details This is a 62-year-old female who presents to the office today for a sick visit. Patient states she has been experiencing dysuria, urinary frequency/urgency, and decreased urination x2 weeks. Patient started to feel generally weak and fatigued with ?fogginess? about 3 days ago. Patient has had some chills but no fevers. She denies any flank pain or back pain. She denies any chest pain or shortness of breath. She denies any abdominal pain or vomiting/diarrhea but she has had some nausea. PFSH Medical History AAA (abdominal aortic aneurysm) Anxiety and depression Ascending aorta dilatation Hydrocephalus Smoking Surgical History Hx of tonsillectomy Status post lumbar spine surgery for decompression of spinal cord E COMMERCE DEVELOPER (ventriculoperitoneal) shunt status Family History Mother Colon cancer Substance use disorder Brother Substance use disorder Father Substance use disorder Sister Substance use disorder Mental health disorder Paternal Uncle Substance use disorder Mental health disorder Maternal Uncle Substance use disorder Mental health disorder Social History Housing: House Alcohol intake: never Patient Tobacco Use Status: Current everyday Tobacco user Cigarettes Per Day: 10 e-Cigarette/Vaping Use: Never Used Second Hand Smoke Exposure: No Substance Use Type: Marijuana service: No Current occupational status: retired Gender identity: Female Cognitive needs: No Hearing needs: No Vision needs: No Review of Systems Const All systems reviewed & are unremarkable except as noted in HPI and below Reports no additional complaints, Reports chills and Denies fever(s) Eyes Reports no additional complaints ENT Reports no additional complaints Card Reports no additional complaints Resp Reports no additional complaints GI Reports no additional complaints and Reports nausea Reports no additional complaints and Reports as per HPI Musc Reports no additional complaints Skin/Breast Reports system reviewed and no additional complaints, except as documented Neuro Reports no additional complaints Psych Reports no additional complaints Endo Reports no additional complaints Killian/Lymph Reports no additional complaints Aller/Immun Reports no additional complaints Physical Exam Vital Signs: Last Vital Signs Temp 96.4 F L 10/17/22 14:24 Pulse 51 10/17/22 14:24 BP 122/62 10/17/22 14:24 Pulse Ox 99 10/17/22 14:24 Oxygen Delivery Method Room Air 10/17/22 14:24 Const General: cooperative, healthy appearing, comfortable, no acute distress, well developed, alert, awake and Physically active Orientation/consciousness: patient oriented x3 HEENT Head: Yes normal to inspection Ears: hearing grossly normal bilaterally General nose exam: Normal external nose present Face and sinus: Yes normal facial exam Eyes General: appearance normal, both eyes and all related structures Pupils: Equal, round and reactive pupils present EOM: EOMs intact bilaterally Resp Effort & Inspection: normal respiratory effort Auscultation: clear to auscultation bilaterally Cardio Rate: regular rate Rhythm: regular rhythm Heart sounds: no gallops, no murmurs and no rubs GI Inspection: Yes normal to inspection and No distended Palpation (GI): Soft to palpation and nontender Auscultation: normal bowel sounds General: Yes no CVA tenderness Back/Spine/Pelvis Back: no CVA tenderness Skin General skin exam: no rashes or lesions noted Neuro General: patient oriented x3 Cranial nerves: Yes CN's II-XII intact bilaterally and Yes Equal, round and reactive pupils present Gait exam (Neuro): Normal gait present Motor exam (neuro): 5/5 motor strength present throughout Results AMB Urinalysis, Automated UA Leukoctes 15 Iam/uL Last Edit by Andie Escalante CMA on 10/17/22 14:29 UA Nitrite Negative Last Edit by Andie Escalante CMA on 10/17/22 14:29 UA Urobilinogen 0.2 mg/dL Last Edit by Andie Escalante, ELAINA on 10/17/22 14:29 UA Protein 0 mg/dL Last Edit by Andie Escalante, ELAINA on 10/17/22 14:29 UA pH 6.5 Last Edit by Andie Escalante, ELAINA on 10/17/22 14:29 UA Blood 0 Enrique/uL Last Edit by Andie Escalante, ELAINA on 10/17/22 14:29 UA Specific [place] 1.005 Last Edit by Andie Escalante, QUALIFIED CRAFT WORKER ELECTRICIAN on 10/17/22 14:2 9 UA Ketone Negative Last Edit by Andie Escalante, ELAINA on 10/17/22 14:29 UA Bilirubin 0 mg/dL Last Edit by Andie Escalante, ELAINA on 10/17/22 14:29 UA Glucose 0 mg/dL Last Edit by Andie Escalante, ELAINA on 10/17/22 14:29 Results Reviewed Results Reviewed: Laboratory Last Values Urine pH (Auto) 6.5 10/17/22 14:27 Specific [place] (Auto) 1.005 10/17/22 14:27 Urine Protein (Auto) 0 mg/dL 10/17/22 14:27 Glucose (UA)(Auto) 0 mg/dL 10/17/22 14:27 Urine Ketones (Auto) Negative 10/17/22 14:27 Urine Blood (Auto) 0 Enrique/uL 10/17/22 14:27 Urine Nitrite (Auto) Negative 10/17/22 14:27 Urine Bilirubin (Auto) 0 mg/dL 10/17/22 14:27 Urine Urobilinogen (Auto) 0.2 mg/dL 10/17/22 14:27 Leukocyte Esterase (Auto) 15 Iam/uL 10/17/22 14:27 Assessment & Plan Assessment & Plan (1) UTI (urinary tract infection): Code(s): N39.0 - Urinary tract infection, site not specified Plan: This is a 62-year-old female presenting to the office with urinary symptoms. Urine dipstick is positive for leukocyte esterase. Patient's history and physical most consistent with acute cystitis. No CVA tenderness or hematuria to suggest nephrolithiasis or pyelonephritis. No fevers or chills or other systemic symptoms. Patient sent home on p.o. cefpodoxime 100 mg twice daily x7 days. Patient advised to follow-up here go to the emergency room for worsening fever/chills, worsening or persistent symptoms, or flank/back pain. Patient verbalizes her understanding and she is in agreement with the plan. Orders: Orders AMB Urinalysis Automated Today Z13.9 - Encounter for screening, unspecified Medications: New cefpodoxime must administer with a meal/food 100 mg PO BID 14 tabs 0RF Coding Level of Care Code Est Pt Level 3 (39685) Diagnoses UTI (urinary tract infection) N39.0
[2022-10-17 14:24] VITALS: BP 122/62; PULSE 51; TEMP 35.8; O2SAT 99
== END 2022-10-17 14:59 | disposition home or self-care (01) ==
PROVIDERS: PCP Nurse Practitioner Family; Visit Provider Physician Assistant Medical
DX: Z13.9 Encounter for screening, unspecified (principal); N39.0 Urinary tract infection, site not specified
CPT/HCPCS: 81003; 99213

== ENCOUNTER 2023-01-13 08:58 | Outpatient (REF) | payer MEDICARE, MEDICAID, SELFPAY ==
--- NOTE | ~2023-01-13 | US_ITS ---
EXAMINATION: US RETROPERITONEAL LIMITED (AORTA) CLINICAL INFORMATION: Abdominal aortic aneurysm without rupture, unspecified. COMPARISON: Ultrasound abdomen complete 02/25/2018. TECHNIQUE: Abreu-scale, color Doppler and spectral Doppler evaluation of the abdominal aorta. FINDINGS: Atherosclerotic aorta. The measurements of the aorta in maximum AP and transverse dimensions respectively are as follows: Proximal: 3.8 x 4.1 cm. Mid: 2.4 x 2.7 cm. Distal: 1.7 x 2.0 cm. The measurements of the common iliac arteries in maximum AP and TRV dimensions are as follows: Right Common Iliac Artery: 1.3 cm. Left Common Iliac Artery: 1.4 cm. US/US abdominal aortic aneurysm IMPRESSION: Suprarenal abdominal aortic aneurysm measuring 4.1 x 3.8 cm compared to 3.7 x 3.6 cm on 05/07/2021.
== END 2023-01-13 08:59 | disposition home or self-care (01) ==
LOC: HO.US 08:58
PROVIDERS: PCP Nurse Practitioner Family; Visit Provider Nurse Practitioner Family
DX: Z13.6 Encounter for screening for cardiovascular disorders (principal); I71.40 Abdominal aortic aneurysm, without rupture, unspecified
CPT/HCPCS: 76706

== ENCOUNTER 2023-02-23 09:58 | Outpatient (AMB) | payer MEDICARE, MEDICAID, SELFPAY ==
--- NOTE | 2023-02-23 10:02 | A.OFFPC_ITS ---
Vital Signs 02/23/23 10:06 Height 5 ft 4 in Weight 176 lb BMI 30.2 BP 112/62 Blood Pressure Location Lt brachial Position Sitting Pulse 60 Pulse Source Pulse Oximeter Pulse Oximetry (%) 98 Oxygen Delivery Method Room Air Intake Visit Reasons: PreOp-cataract surgery Intake Note: Pt is here today for a pre-op for cataract surgery Lt eye on 02/26/[address] Martin Allergies Opioids - Morphine Analogues [OPIOIDS - MORPHINE ANALOGUES] Allergy (Unknown, Verified 02/23/23 10:14) VOMIT/RASH Sulfa (Sulfonamide Antibiotics) [SULFA (SULFONAMIDE ANTIBIOTICS)] Allergy (Unknown, Verified 02/23/23 10:14) RASH, hives Tobacco use date assessed: 02/23/23 Fall risk assessment: 2 + Falls in past year Last assessed Fall Risk: 02/23/23 Dental Screening Dental Screen Date: 02/23/23 Did you have a dental visit in the last 12 months?: Yes Did you have a dental problem in the last 6 months where you did not have access to dental care?: Yes Was dental information given to patient?: Patient has dentist HPI HPI Comments History of Present Illness Details Patient is a 62-year-old female in today for a preoperative visit for cataract surgery of the left eye. Patient has a past medical history significant for hydrocephalus, AAA, and hypothyroidism. Patient has a past surgical history significant for STUDENT DEVELOPMENT SPECIALIST shunt, and spinal decompression. The patient's medication list is up-to-date. At the time of appointment she has no complaints. [facility] Medical History (Updated 08/14/22 @ 09:29 by TITA Chaudhari) Ascending aorta dilatation AAA (abdominal aortic aneurysm) Smoking Hydrocephalus Anxiety and depression Surgical History Hx of tonsillectomy Status post lumbar spine surgery for decompression of spinal cord STUDENT DEVELOPMENT SPECIALIST (ventriculoperitoneal) shunt status Family History Mother Colon cancer Substance use disorder Brother Substance use disorder Father Substance use disorder Sister Substance use disorder Mental health disorder Paternal Uncle Substance use disorder Mental health disorder Maternal Uncle Substance use disorder Mental health disorder Housing: House Alcohol intake: never Patient Tobacco Use Status: Current everyday Tobacco user Cigarettes Per Day: 10 e-Cigarette/Vaping Use: Never Used Second Hand Smoke Exposure: No Substance Use Type: Marijuana service: No Current occupational status: retired Gender identity: Female Cognitive needs: No Hearing needs: No Vision needs: No Questionnaire Thrive Questionnaire Date Thrive assessed: 08/14/22 JONG-7 AMB Questionnaire JONG-7 Date JONG - 7 assessed: 08/14/22 Source: Developed by Drs. Tyrel Chambers, Zuri Chatman, Db Chung and colleagues, with an educational terry from [employer]. Review of Systems Const Details: Constitutional : No Weight loss, No Fever, No Chills, No Fatigue, No Malaise ENT/Mouth : No sore throat, No Rhinorrhea Eyes: No Eye Pain, No Swelling, No Redness. Admits seeing through milk glass with left eye. Cardiovascular : No Chest Pain, No SOB, No Dyspnea on Exertion, No Orthopnea, No Edema, No Palpitations Respiratory : No Cough, No Sputum, No Wheezing Gastrointestinal : No Nausea, No Vomiting, No Diarrhea, No Constipation, No abdominal Pain, No Hematochezia, No Melena Genitourinary : No Dysuria, No Urinary Frequency, No Hematuria, Skin : No Skin Lesions, No rash Neuro : No Weakness, No Numbness, No Dizziness, No Headache Psych : No SI/HI. Heme/Lymph: No Bruising, No Bleeding,No Lymphadenopathy Endocrine : No Polyuria, No Polydipsia All other systems reviewed and are negative Physical exam (Primary Care) Vital Signs: Vital signs have been reviewed and are stable BMI result Body Mass Index 30.2 Tobacco/Smoking Status: Tobacco use Status Tobacco use date assessed 02/23/23 02/23/23 10:17 Patient Tobacco Use Status Current everyday Tobacco 02/23/23 10:04 e-Cigarette/Vaping Use Never Used 02/23/23 10:04 Thrive Assessment: Date of Thrive Assessment Date Thrive assessed 08/14/22 02/23/23 10:04 Const Other: Appearance: Alert.? Oriented X3.? No acute distress.? Head: Normocephalic, atraumatic, no step-offs or deformities Eyes: Pupils equal, round and reactive to light.? ENT: Pharynx normal.? Neck: Normal inspection.? Neck supple.?No lymphadenopathy. CVS: Normal heart rate and rhythm.? Pulses normal.? Respiratory: No respiratory distress.? Breath sounds normal.? Abdomen: Soft and nontender.? Skin: Skin warm and dry.? Normal skin color.? Normal skin turgor.? Neuro: Oriented X 3.? ?No sensory deficit. CN 2-12 intact General: cooperative and no acute distress Assessment and Plan Assessment & Plan (1) Pre-op exam: Code(s): Z01.818 - Encounter for other preprocedural examination Plan: Patient had preop exam for cataract surgery of her left eye. Patient is not on any medications that would need to be discontinued. Per instructions from [facility] [place] no routine laboratory or diagnostic screening is necessary. No EKG is necessary. Coding Level of Care Code Est Pt Level 3 (02934) Diagnoses Pre-op exam Z01.818
[2023-02-23 10:06] VITALS: BP 112/62; PULSE 60; O2SAT 98; BMI 30.2
== END 2023-02-23 13:31 | disposition home or self-care (01) ==
PROVIDERS: PCP Nurse Practitioner Family; Visit Provider Nurse Practitioner Primary Care
DX: H26.9 Unspecified cataract (principal); Z01.818 Encounter for other preprocedural examination
CPT/HCPCS: 99213

== ENCOUNTER 2023-07-30 08:55 | Outpatient (REF) | payer MEDICARE, MEDICAID, SELFPAY ==
--- NOTE | ~2023-07-30 | US_ITS ---
EXAMINATION: US RETROPERITONEAL LIMITED (AORTA) CLINICAL INFORMATION: Abdominal aortic aneurysm, without rupture, unspecified. COMPARISON: Ultrasound aorta 01/13/2023. TECHNIQUE: Abreu-scale, color Doppler and spectral Doppler evaluation of the abdominal aorta. FINDINGS: The measurements of the aorta in maximum AP and transverse dimensions respectively are as follows: Proximal: 4.5 x 4.8 cm. On previous ultrasounds this measured 3.8 x 4.1 01/13/2023 and 3.6 x 3.7 cm 05/07/2021. On CTA 09/12/2022, this measured 3.4 x 3.6 cm. Mid: 2.9 x 3.3 cm. Distal: 1.8 x 2.0 cm. PSV: 104 cm/s. The measurements of the common iliac arteries in maximum AP and TRV dimensions are as follows: Right Common Iliac Artery: 1.3 x 1.4 cm. Left Common Iliac Artery: 1.0 x 1.1 cm. US/US aorta IMPRESSION: By ultrasound, the distal thoracic/proximal abdominal aortic aneurysm measures 4.5 x 4.8 cm which is increased compared to prior ultrasounds (3.8 x 4.1 cm December 2022 and 3.6 x 3.7 cm April 2021) though this is a difficult segment of aorta to measure reproducibly due to tortuosity. On CTA 09/12/2022, this measured 3.4 x 3.6 cm. Consider CTA of the abdomen without and with contrast for accurate measurement.
== END 2023-07-30 08:56 | disposition home or self-care (01) ==
LOC: HO.HMGCX 08:55
PROVIDERS: PCP Nurse Practitioner Family; Visit Provider Nurse Practitioner Family
DX: I71.40 Abdominal aortic aneurysm, without rupture, unspecified (principal)
CPT/HCPCS: 76775

== ENCOUNTER 2023-09-16 12:10 | Outpatient (REF) | payer MEDICARE, MEDICAID, SELFPAY | END 2023-09-16 12:11 | disposition home or self-care (01) | LOC: HO.MAMMO 12:10 | PROVIDERS: PCP Nurse Practitioner Family; Visit Provider Nurse Practitioner Family | DX: Z12.31 Encounter for screening mammogram for malignant neoplasm of breast (principal) | CPT/HCPCS: 77063; 77067 ==

== ENCOUNTER → 2023-09-16 12:30 | Outpatient (BNV) | payer MEDICARE, MEDICAID, SELFPAY | PROVIDERS: PCP Nurse Practitioner Family; Visit Provider Radiology Diagnostic Radiology | DX: Z12.31 Encounter for screening mammogram for malignant neoplasm of breast (principal) | CPT/HCPCS: 77063; 77067 ==

== ENCOUNTER 2023-10-06 08:27 | Outpatient (REF) | payer MEDICARE, MEDICAID, SELFPAY ==
--- NOTE | ~2023-10-06 | CT_ITS ---
EXAMINATION: CT ANGIOGRAPHY ABDOMEN WITHOUT AND WITH CONTRAST CLINICAL INFORMATION: Reason for Exam I71.40 - Abdominal aortic aneurysm, without rupture, unspecified COMPARISON: Ultrasound Aorta dictated 07/30/2023, CTA chest dated 09/12/2022, abdominal ultrasound dated 05/07/2021, CT abdomen/pelvis dated 07/06/2013 TECHNIQUE: Initial noncontrast localizing supervisor vine fruit farming images were obtained. A timing bolus at the level of the celiac artery was calculated. Subsequently, arterial phase multidetector volumetric imaging was performed through the abdomen following the administration of 80 mL Omnipaque 350 intravenous contrast. No contrast reaction reported. Sagittal and coronal reformatted images were obtained on the technologist workstation. After extensive post-processing on a dedicated 3-D workstation, 3-D reformatted images were uploaded to PACS and reviewed as well. This CT examination was performed using dose optimization techniques as appropriate, variously including the following: *Automated exposure control *Adjustment of mA and/or kV according to patient size (this includes techniques or standardized protocols for targeted exams where dose is matched to indication/reason for exam; i.e. extremities or head) *Use of iterative reconstruction technique DLP: 219 mGy-cm FINDINGS: VASCULAR: Abdominal aortic aneurysm measures 3.5 cm in maximal diameter in the supraceliac segment and maximal diameter of 2.7 cm in the infrarenal segment. No dissection of the abdominal aorta. No penetrating atheromatous ulcer. 1. Distal Thoracic Aorta: No evidence of dissection. 2.7 x 2.7 cm 2. Supraceliac Abdominal Aorta: 3.5 x 3.5 cm 3. Infrarenal Abdominal Aorta: proximal 2.7 x 2.6 cm, mid 2.5 x 2.6 cm, distal 1.8 x 1.7 cm 4. Iliac Arteries: The common, external and internal iliac arteries are patent. Proximal femoral vessels are patent. 5. Mesenteric Arteries: Celiac artery is patent. Superior mesenteric artery patent. Inferior mesenteric artery patent. 6. Renal arteries: Single renal arteries bilaterally. Renal arteries are patent and without stenosis or other vascular anomaly. NONVASCULAR: Lung Bases: The visualized lung bases are clear. Liver: Scattered hepatic cysts are unchanged, largest of which measures 3.8 x 3.4 cm in segment IVb (503:95). Gallbladder: Cholelithiasis without gallbladder wall thickening, pericholecystic fluid, or pericholecystic fat stranding to suggest acute cholecystitis. Biliary System: No intrahepatic or extrahepatic biliary ductal dilation. Pancreas: Homogeneous in attenuation. No pancreatic ductal dilatation. No focal lesion. Spleen: Normal in size. Adrenal Glands: No focal nodule. Genitourinary: Bilateral kidneys demonstrate symmetric enhancement. No perinephric fluid collection. No renal calculi. No hydroureteronephrosis. GI: Scattered colonic diverticulosis without secondary signs of acute diverticulitis. The visualized alimentary tract is normal in course. No bowel wall thickening. No dilated loops of bowel to suggest obstruction. Appendix: The appendix is partially visualized and is unremarkable. Peritoneum: No pneumoperitoneum. No ascites. No intra-abdominal fluid collection. Partially visualized peritoneal dialysis catheter with a right intraperitoneal course. Lymph Nodes: No pathologically enlarged abdominal or pelvic lymph nodes. Soft Tissues/Musculoskeletal: Posterior fusion hardware of L4-L5. CT/CT angio abdomen IMPRESSION: VASCULAR: 1. Abdominal aortic aneurysm measures maximal diameter of 3.5 cm and is stable when compared to CTA dated 09/12/2022 but has increased in size when compared to CTA in 2013, at which time it measured 3.0 x 3.0 cm. Based on published guidelines in J Am Cedrick Radiol 2013; 10(10):789-794 and J Vasc Surg. 2018; 67:2-77, the recommendation for an abdominal aortic aneurysm with diameter 3.5-3.9 cm is follow-up every 2 years. NONVASCULAR: 1. Cholelithiasis without acute cholecystitis. 2. Scattered colonic diverticuli without acute diverticulitis. Fleischner guidelines were followed.
[2023-10-06] MEDS: iohexoL 350 MG/ML 100 ML INFUS..BTL 80 ML IV (09:04)
== END 2023-10-06 08:28 | disposition home or self-care (01) ==
LOC: HO.CT 08:27
PROVIDERS: PCP Nurse Practitioner Family; Visit Provider Nurse Practitioner Family
DX: I71.40 Abdominal aortic aneurysm, without rupture, unspecified (principal)
CPT/HCPCS: 74175; Q9967

== ENCOUNTER → 2024-03-17 07:38 | Outpatient (BNVA) | payer MEDICARE, MEDICAID, SELFPAY | PROVIDERS: PCP Nurse Practitioner Family; Visit Provider Nurse Practitioner Family | DX: E78.5 Hyperlipidemia, unspecified (principal); E03.9 Hypothyroidism, unspecified; E55.9 Vitamin D deficiency, unspecified ==

== ENCOUNTER 2024-07-07 10:18 | Outpatient (REF) | payer MEDICARE, MEDICAID, SELFPAY ==
--- OUTSIDE RECORDS SUMMARY | 2024-07-07 12:07 | XMS_ITS | Data Portability ---
Author Organization [facility], , [facility] Address [address] [place] [address] Assessment No assessment recorded. Plan of Treatment Reminders Order Date Submit Date Provider Last Modified By Organization Details Last Modified Time Details Appointments None record ed. Lab None record ed. Referral None record ed. Procedures None record ed. Surgeries None record ed. Imaging None record ed. Medication Orders None record ed. Patient TargetsNo targets recorded. Patient InstructionsNo instructions recorded. Reason for Referral None Reported. Problems Name Problem SNOMED Code Status Onset Date Resolution Date Notes Provider Name and Address Organization Details Recorded Time Disorder of tendon of shoulder region 34296965 Completed 200202/16/2013 Not Available [facility] 3 02:02:35 Finding by method [id number] Completed 200102/16/2013 Not Available [facility] 3 02:01:53 Presbyopia 98025478 Active 2001 Not Available [facility] 3 03:02:36 Joint pain 14042407 Active 2000 Not Available [facility] 3 03:02:36 Sprain of shoulder and upper arm Completed 200102/16/2013 Not Available [facility] 3 02:03:37 Lateral epicondyli tis 229020358 Completed 200002/16/2013 Not Available [facility] 3 02:02:34 Nausea and vomiting 97681289 Completed 200002/16/2013 Not Available [facility] 3 02:03:05 Constipati on 74646324 Completed 200102/16/2013 Not Available [facility] 3 02:02:38 Myopia 67299299 Active 2001 Not Available [facility] 3 03:02:36 Generalize d abdominal pain 915501059 Completed 200002/16/2013 Not Available [facility] 3 02:02:04 Low back pain 345059602 Active 2002 Not Available [facility] 3 03:02:36 Neck pain 42079115 Completed 200002/16/2013 Not Available [facility] 3 02:00:32 Pain in limb 48610524 Completed 200202/16/2013 Not Available [facility] 3 02:00:52 Sprain of spinal ligament 785987177 Completed 200002/16/2013 Not Available [facility] 3 02:04:07 Acute bronchitis 32072586 Completed 200102/16/2013 Not Available [facility] 3 02:01:34 Malaise and fatigue 374694763 Completed 200202/16/2013 Not Available [facility] 3 02:00:14 Problem Notes None recorded. Procedures Surgical History Date Name Laterality Status Provider Name and Address Organization Details Recorded Time 5 Riddle - Colonoscopy completed Rc Riddle MD [address] [place] [address], [id number] [place] [address] 08/31/2014 12:15:58 Imaging Results None recorded. Procedure Notes None recorded. Medical Equipment None Reported. Vitals None Recorded Social History None recorded. Functional Status None recorded. Mental Status None recorded. Family History Nothing Reported. Medical History No medical history recorded. Gynecological HistoryNo gynecological history recorded. Obstetrics History GPAL:G 0 P 0 0 0 0 Immunizations Vaccine Type Date Status Note Provider Nam e and Address Organization Details Recorded Time Td(adult) unspecified formulation 3 completed Not Available [facility] 02/12/2011 05:20:34 Past Encounters Encounter ID Performer Location Encounter Start Date Encounter Closed Date Diagnosis/Indication Diagnosis SNOMED-CT Code Diagnosis ICD10 Code Diagnosis Note [id number] , [facility], OFFICE [address] [place] [address] 04/08/2000 11:45:00 04/19/2008 02:02:29 [id number] Physical Therapy, [facility] [address] [place] [id number] 04/09/2000 16:30:00 04/19/2008 02:02:29 [id number] Physical Therapy, [facility] [address] [place] [id number] 04/28/2000 12:30:00 04/19/2008 02:02:29 [id number] Physical Therapy, [facility] [address] [place] [id number] 05/12/2000 10:30:00 04/19/2008 02:02:29 [id number] FP [facility], OFFICE [address] [place] [id number] 01/14/2001 16:00:00 04/19/2008 02:02:29 [id number] GHAN[place] [facility], OFFICE [address] [place] [id number] 03/24/2001 14:30:00 04/19/2008 02:02:29 [id number] GHAN[place]YAM [facility], OFFICE [address] [place] [id number] 04/14/2001 16:30:00 04/19/2008 02:02:29 [id number] FP [facility], OFFICE [address] [place] [id number] 05/07/2001 13:30:00 04/19/2008 02:02:29 [id number] [place]AN[place] [facility], OFFICE [address] [place] [id number] 05/21/2001 17:00:00 04/19/2008 02:02:29 [id number] Radiology , [facility] [address] [place] [id number] 05/24/2001 11:30:00 04/19/2008 02:02:29 [id number] FP [facility], OFFICE [address] [place] [id number] 05/24/2001 12:00:00 04/19/2008 02:02:29 [id number] Radiology , [facility] [address] [place] [id number] 05/24/2001 00:00:00 04/19/2008 02:02:29 [id number] FP [facility], OFFICE [address] [place] [id number] 09/08/2001 09:57:38 04/19/2008 02:02:29 [id number] [place] [facility], OFFICE [address] [place] [address] 02/02/2002 15:12:26 04/19/2008 02:02:29 [id number] Eye Care, [facility] [address] [place] [id number] 02/10/2002 16:04:03 04/19/2008 02:02:29 [id number] FP, [facility], OFFICE [address] [place] [id number] 05/26/2002 15:08:15 04/19/2008 02:02:29 [id number] , [facility], OFFICE [address] [place] [id number] 07/15/2002 14:52:44 04/19/2008 02:02:29 [id number] , [facility], OFFICE [address] [place] [address] 07/19/2002 15:55:20 04/19/2008 02:02:29 [id number] , [facility], OFFICE [address] [place] [id number] 08/25/2002 13:23:41 04/19/2008 02:02:29 [id number] , [facility], OFFICE [address] [place] [id number] 10/04/2002 11:18:18 04/19/2008 02:02:29 [id number] , [facility], OFFICE [address] [place] [id number] 11/03/2002 13:15:19 04/19/2008 02:02:29 [id number] [facility], [facility] [address] [place] [id number] 12/20/2002 16:37:15 12/20/2002 16:56:25 [id number] , [facility], OFFICE [address] [place] [address] [place] [id number] 07/09/2004 11:41:17 07/10/2004 17:52:14 [id number] [facility], [facility] [address] [place] [id number] 08/31/2014 10:41:02 08/31/2014 14:11:27 Health Concerns Section Related Observation LastModified by Organization Detai ls LastModified Time None Recorded Concern Status LastModified by Organization Details LastModified Time None Recorded Advance Directives Directive None Recorded Payers Encounter Date Sequence Insurance Name Policy Number Policy Pendleton Covered Member ID Pendleton Member ID Guarantor Name 10/04/2002 1 [employer] - MANAGED CHOICE (POS) Blanca Hedrick [id number] Blanca Palm 11/03/2002 1 [employer] - MANAGED CHOICE (POS) Blanca Hedrick [id number] Blanca Palm 12/20/2002 1 [employer] - MANAGED CHOICE (POS) Blanca Hedrick [id number] Blanca Palm 07/09/2004 1 [place] [id number] Blanca Palm [id number] Blanca Palm 08/31/2014 1 [facility] [employer] [facility] - TOGETHER (MEDICAID HMO) Blanca Palm [id number] Blanca Palm OBGyn Episode No OBEpisode recorded.
--- OUTSIDE RECORDS SUMMARY | 2024-07-07 12:07 | XMS_ITS | Patient Health Record ---
[facility] [place] Address [address] [place] [address] Care Team Providers Care Jewel Hole Rough Opener Name Role Phone Esau Iglesias Primary Care Provider Unav ailable Rene Michael Unavailable [phone] Allergies Allergen (clinical drug ingredient) Drug/Non Drug Allergy documented on EMR Reaction Allergy Type Onset Date Status Codeine Phosphate hives, vomiting Drug Allergy Active Morphine and Related hives, vomiting Drug Allergy Active Substance with sulfonamide structure and antibacterial mechanism of action (substance) Sulfa Antibiotics hives, vomiting Drug Allergy Active Reason For Referral No Information Medications Medication SIG (Take, Route, Frequency, Duration) Notes Start Date End Date Status Levothyroxine Sodium 125 MCG 1 tablet in the morning on an empty stomach Orally Once a day for 30 day(s) Active Social History Tobacco Use: Social History Observation Description Date Details (start date - stop date) Current Smoker NA - NA Tobacco Use/Smoking Question Answer Notes Are you a: current smoker Alcohol Screen Question Answer Notes Did you have a drink containing alcohol in the p ast year? No Points 0 Interpretation Negative Tobacco use other than smoking: Question Answer Notes Are you an other tobacco user? No Plan Of Treatment Pending Test Test Name Order Date X ray : Foot, right 3V 03/18/2022 Insurance Providers Payer Name Payer Address Payer Phone Subscriber Number Group Number Insured Name Patient Relationship to Insured Coverage Start Date Coverage End Date Medicare National Govt Sv[employer] [address] [facility] [place] [address] [id number] Blanca Palm Self - patient is the insured Medical (General) History Medical History History ICD Code thyroid Measles Mumps Chicken pox Joint implants/screws Surgical History Surgery Date(Month/Year) back surgery 04/18/2015 brain surgery 04/18/2017
--- OUTSIDE RECORDS SUMMARY | 2024-07-07 12:07 | XMS_ITS | Clinical Summary ---
Author Organization [facility] [place] [address] Care Team Providers Care Second Time Worker Name Role Phone None Primary Care Provider Unavailabl e Social History Tobacco Use Types Packs/Day Years Used Date Smoking Tobacco: Never Assessed Sex and Gender Information Value Date Recorded Sex Assigned at Not on file Gender Identity Not on file Sexual Orientation Not on file Last Filed Vital Signs Vital Sign Reading Time Taken Comments Blood Pressure 125/57 11/28/2018 8:45 PM EDT Pulse 60 11/28/2018 8:45 PM EDT Temperature 36.9 ??C (98.4 ??F) 11/28/2018 7:04 PM E DT Respiratory Rate 16 11/28/2018 8:45 PM EDT Oxygen Saturation 100% 11/28/2018 8:45 PM EDT Inhaled Oxygen Concentration - - Weight 90.7 kg (200 lb) 11/28/2018 7:04 PM EDT Height - - Body Mass Index - - Plan of Treatment Health Maintenance Due Date Last Done Comments CT Colonography 1958 Colonoscopy 1958 Colorectal Cancer Screening 1958 FIT DNA 1958 FIT 1958 Sigmoidoscopy (10 year) with FIT yearly 1958 Sigmoidoscopy 1958 Hepatitis C Screening 1976 Tetanus/Diphtheria/Pertussis Vaccines (1 - Tdap) 05/01 HPV test 1988 PAP Smear 1988 Breast Cancer Share Decision Needed 1998 Breast Cancer screening 1998 Pneumoccocal Vaccine: 50+ (1 of 1 - PCV) 2008 Zoster vaccine (1 of 2) 2008 Advance Directive 2013 Bone Density Scan 2023 Covid-19 Vaccine (2023- season) 2023 Influenza (Flu) vaccine (1 o f 1 - Influenza standard series) 11/29/2023 Care Teams Second Time Worker Relationship Specialty Start Date End Date None None PCP - General 11/28/18
--- OUTSIDE RECORDS SUMMARY | 2024-07-07 12:07 | XMS_ITS | Clinical Summary ---
Author Organization [facility] Address [address] [place] [address] Care Team Providers Care Manual Tester Name Role Phone Esau Boyle Primary Care Provider [phone] Allergies Active Allergy Reactions Criticality Noted Date Comments Morphine Hives,Vomiting 03/11/2017 Pt states all opiates give her hives, vomiting Sulfa (Sulfonamide Antibiotics) Hives 03/11/2017 Medications DIETARY SUPPLEMENT ORAL Take by mouth. Tea with senna Active acetaminophen (TYLENOL) 325 mg tablet Take 2 tablets (650 mg total) by mouth every 6 hours as needed for mild pain (pain score 1-3). 8 Active ibuprofen (MOTRIN) 400 mg tablet Take 400 mg by mouth every 6 hours as needed. Active levothyroxine (SYNTHROID, LEVOTHROID) 75 mcg tablet Take 125 mcg by mouth daily. 2 8 Active calcium carbonate-vitamin D3 500 mg-200 units tablet Take 1 tablet by mouth 2 times a day with meals. Active erenumab-aooe (AIMOVIG AUTOINJECTOR SUBCUTANEO) Inject under the skin once. Once a month Active amLODIPine (NORVASC) 5 mg tablet Take 5 mg by mouth once a day. Active ARIPiprazole (ABILIFY) 2 mg tablet Take 2 mg by mouth in the morning. Active atorvastatin (LIPITOR) 20 mg tablet Take 20 mg by mouth once a day. Active DULoxetine DR (CYMBALTA) 60 mg capsule Take 60 mg by mouth in the morning. Active magnesium gluconate (MAGONATE) 27 mg magnesium (500 mg) tablet Take 500 mg by mouth once a day. Active melatonin 3 mg tablet Take by mouth nightly. Active metoprolol succinate XL (TOPROL XL) 25 mg tablet Take 25 mg by mouth once a day. Active iron,carbonyl/asc orbic acid (VITRON-C ORAL) Take 125 mg by mouth. 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 Post-op head CT shows stable placement of ventricular system in right parietal without any hemorrhage noted. Plan: Continue neuro checks per unit PT/OT evaluation Discharge pending PT eval and shunt series report Follow up outpatient at discharge Hydrocephalus, acquired 03/11/201707/2017 Family History Medical History Relation Name Comments Other Brother ITP Abnormal EKG Father Alcohol abuse Father COPD Father Myocardial Infarction Father Stroke Father Lymphoma Mother Relation Name Status Comments Brother Father Mother Social History Tobacco Use Types Packs/Day Years Used Date Smoking Tobacco: Every Day Cigarettes 1 30 Smokeless Tobacco: Never Tobacco Cessation:Ready to Q uit: Not Asked; Counseling Given: Not Answered Comments:now 3-5 cigarettes daily for 2 months Alcohol Use Standard Drinks/Week Comments No 0 (1 standard drink = 0.6 oz pur e alcohol) no ETOH at least 20 years Comments No Sex and Gender Information Value Date Recorded Sex Assigned at Not on file Legal Sex Female 10:47 AM EST Gender Identity Female 07/29/2017 3:04 PM EDT Sexual Orientation Not on file Last Filed Vital Signs Vital Sign Reading Time Taken Comments Blood Pressure 132/75 05/25/2023 3:07 PM EST Pulse 64 05/25/2023 3:07 PM EST Temperature 35.9 ??C (96.7 ??F) 10/06/2022 12:47 PM E DT Respiratory Rate 18 05/25/2023 3:07 PM EST Oxygen Saturation 98% 05/25/2023 3:07 PM EST Inhaled Oxygen Concentration - - Weight 69.4 kg (153 lb) 12/01/2019 7:52 AM EDT Height 162.6 cm (5' 4 ) 12/01/2019 7:52 AM EDT Body Mass Index 26.26 12/01/2019 7:52 AM EDT Plan of Treatment Health Maintenance Due Date Last Done Comments Colonoscopy 1958 FOBT / Fit Test 1958 Hepatitis C Screening 1958 Sigmoidoscopy 1958 Medicare AWV 1959 Pneumococcal Vaccine: 50+ Years (1 of 2 - PCV) [address] Lung Cancer Screening (Baseline) 2008 Osteoporosis Screening 2008 Zoster Vaccines (1 of 2) 2008 COVID-19 Vaccine ( season) 2023 01/04/2022, 04/06/2021, 08/28/2020, Additional history exists Alcohol/Substance Use Screening 03/30/2024 Depression Screening and Follow-Up 03/30/2024 Health Care Proxy Review 03/30/2024 Social Drivers of Health Annual Screening 03/30/2024 Cologuard 04/16/2024 04/16/2021, 04/16/2021 Colon Cancer Screening 04/16/2024 Influenza Vaccine (Season Ended) 2024 01/04/2022, 01/12/2019 DTaP,Tdap,and Td Vaccines (2 - Td or Tdap) 11/28/2031 11/27/2021, 07/19/2002 RSV Vaccine (60+ years old and patients) (1 - 1-dose 75+ series) 2033 Hepatitis B Vaccines Aged Out 10/14/1993, 09/13/18 94 No longer eligible based on patient's age to complete this topic Medical Devices Implanted Type Area Shingle Weaver Device Identifier Shelf Expiration Date Model / Serial / Lot Hakim Programmable Valve Implanted:Qty: 1 on 04/16/2017 by Dimas Mora MD at [facility] Shunt Right: Mastoid CODMAN 06/27/2021 [id number] / / [id number] Description:In-line valve [facility] Insurance MEDICARE [facility] Advance Directives * Full Code (Latest Code Status on File) Date Activated Date Inactivated Comments 04/16/2017 11:02 AM 04/18/2017 6:38 PM Care Teams Manual Tester Relationship Specialty Start Date End Date Esau Boyle: [phone] [address] [place] [id number] PCP - General 02/26/17
--- OUTSIDE RECORDS SUMMARY | 2024-07-07 12:07 | XMS_ITS | Referral Summary ---
Author Organization [facility] Address [address] [place] [address] Care Team Providers Care Director Of Graduate Medical Education Name Role Phone Esau Boyle Primary Care Provider Allergies Active Allergy Reactions Criticality Noted Date [...] (05/28/2017): Added automatically from request for surgery [id number] Spasticity 03/11/2017 Resolved Problems Problem Noted Date Diagnosed Date Resolved Date Hydrocephalus 04/17/2017 03/10/2018 Assessment & Plan (04/18/2017 11:44 AM EST): 56 y/o female with pmh of longstanding compensated hydrocephalus presenting for DIAL BRUSHER shunt placement aeb c/o unsteady gait and [...] up outpatient at discharge Hydrocephalus, acquired 03/11/201707/2017 Social History Tobacco Use Types Packs/Day Years [...] 12/01/2019 7:52 AM EDT Plan of Treatment Not on file Medical Devices Implanted Type Area Program Checker Device Identifier Shelf Expiration Date Model / Serial / Lot Hakim Programmable Valve Implanted:Qty: 1 on 04/16/2017 by Dimas Mora MD at [facility] Shunt Right: Mastoid CODMAN 06/27/2021 [id number] / / [id number] Description:In-line valve [facility] Insurance MEDICARE [facility] Advance Directives * Full Code (Latest Code Status on File) Date Activated Date Inactivated Comments 04/16/2017 11:02 AM 04/18/2017 6:38 PM Care Teams Director Of Graduate Medical Education Relationship Specialty Start Date End Date Esau Boyle: [phone] [address] [place] [address] [place] [phone] PCP - General 02/26/17
--- OUTSIDE RECORDS SUMMARY | 2024-07-07 12:07 | XMS_ITS | Encounter Summary ---
Author Organization [facility] Address [address] [place] [address] Care Team Providers Care Weigher And Crusher Name Role Phone Esau Boyle Primary Care Provider Reason for Visit * Reason Onset Date Comments PAC Patient Request Call Back 08/08/2022 Encounter Details Date Type Department Care Team (Late st Contact Info) Description 08/08/2022 Telephone [facility] Patient Access Center [address] [place] [id number] Telephone Intake, Staff PAC Patient Request Call Back Social History Tobacco Use Types Packs/Day Years Used Date Smoking Tobacco: Every Day Cigarettes 1 30 Smokeless Tobacco: Never Comments:now 3-5 cigarettes daily for 2 months Alcohol Use Standard Drinks/Week Comments No 0 (1 standard drink = 0.6 oz pur e alcohol) no ETOH at least 20 years Comments No Sex and Gender Information Value Date Recorded Sex Assigned at Not on file Legal Sex Female 10:47 AM EST Gender Identity Female 07/29/2017 3:04 PM EDT Sexual Orientation Not on file documented as of this encounter Miscellaneous Notes * Telephone Encounter - Mya Hunt - 08/08/2022 3:32 PM EDT Pt calling in to see when she should be seen next/ pt would like to ask dr Wallace when she should come in.She is having some pressure headaches for about 1 month. Not sure if they are due to allergies or the Hydrocephalus. Pt wanted to touch base before making an appt with dr wallace. documented in this encounter Plan of Treatment Not on file documented as of this encounter Visit Diagnoses Not on filedocumented in this encounter Care Teams Weigher And Crusher Relationship Specialty Start Date End Date Esau Boyle [address] [place] [address] PCP - General 02/26/17 documented as of this encounter
[2024-07-07 13:26] LABS: MANUAL DIFF FLAG NO
[2024-07-07 13:46] LABS: Basophils Absolute Auto 0.1 X10*3/uL (0.0-0.2); Basophils Percent Auto 0.8 % (0-2); Eosinophils Absolute Auto 0.1 X10*3/uL (0.0-0.4); Eosinophils Percent Auto 1.2 % (0-4); Hematocrit 38.2 % (37.0-47.0); Imm Gran Abs Auto 0.03 X10*3/uL (0.00-0.03); Imm Gran Pct Auto 0.4 % (0.0-0.4); Lymphocytes Absolute Auto 2.1 X10*3/uL (1.2-4.9); Lymphocytes Percent Auto 25.3 % (20-40); Mean Corpuscular Hemoglobin 29.5 pg (27.0-33.0); Mean Corpuscular Volume 86.8 fL (80.0-98.0); Mean Platelet Volume 9.5 fL (9.4-12.3); Monocytes Absolute Auto 0.5 X10*3/uL (0.1-1.2); Monocytes Percent Auto 5.5 % (2-11); Neutrophils Absolute Auto 5.6 x10*3/uL (2.0-8.3); Neutrophils Percent Auto 66.8 % (45-73); Platelet Count 255 X10*3/uL (160-400); Red Cell Distribution Width 14.4 % (11.0-16.0); White Blood Count 8.4 X10*3/uL (4.8-10.8)
[2024-07-07 14:11] LABS: Alanine Aminotransferase 11 U/L (0-31); Albumin Level 4.1 g/dL (3.5-5.0); Alkaline Phosphatase 109 U/L (39-117); Anion Gap 12 (12-20); Aspartate Amino Transferase 27 U/L (5-31); Bilirubin Total 0.5 mg/dL (0.0-1.0); Blood Urea Nitrogen 12 mg/dL (9-16); Calcium 9.2 mg/dL (8.4-10.2); Carbon Dioxide 23 mmol/L (22-29); Chloride 112 mmol/L (96-108); Cholesterol 184 mg/dL (<200); Estimated Glomerular Filt Rate > 60; Glucose Fasting 94 mg/dL (60-99); HDL Cholesterol 57 mg/dL (>40); LDL Cholesterol Calculated 103 mg/dL (<100); Potassium 3.9 mmol/L (3.3-5.1); Sodium 143 mmol/L (135-145); Total Protein 7.1 g/dL (6.5-8.0); Triglycerides 121 mg/dL (<150)
[2024-07-07 14:16] LABS: TSH reflex Free T4 2.19 uIU/mL (0.32-4.0); Vitamin D 25-OH Total 52.1 ng/mL (>30)
== END 2024-07-07 10:19 | disposition home or self-care (01) ==
LOC: HO.HMGCLDS 10:18
PROVIDERS: PCP Nurse Practitioner Family; Visit Provider Nurse Practitioner Family
DX: E78.5 Hyperlipidemia, unspecified (principal); E03.9 Hypothyroidism, unspecified; E55.9 Vitamin D deficiency, unspecified
CPT/HCPCS: 36415; 80053; 80061; 82306; 84443; 85025

== ENCOUNTER 2024-07-19 09:02 | Outpatient (AMB) | payer MEDICARE, MEDICAID, SELFPAY ==
--- NOTE | 2024-07-19 09:05 | MHC.PC.OV ---
Vital Signs 07/19/24 09:06 Height 5 ft 4 in Weight 173 lb BMI 29.7 BP 124/72 Blood Pressure Location Lt brachial Position Sitting Respiration 18 Pulse 63 Pulse Source Pulse Oximeter Temp 98.3 F Temp Source Oral Pulse Oximetry (%) 99 Oxygen Delivery Method Room Air Intake Visit Reasons: Annual PE Intake Note: Pt is here today for PE. Allergies Opioids - Morphine Analogues [OPIOIDS - MORPHINE ANALOGUES] Allergy (Unknown, Verified 07/19/24 09:36) VOMIT/RASH Sulfa (Sulfonamide Antibiotics) [SULFA (SULFONAMIDE ANTIBIOTICS)] Allergy (Unknown, Verified 07/19/24 09:36) RASH, hives Medication List - Last Reconciled 07/19/24 by Esau Boyle, MANAGER OF FINANCIAL PLANNING-BC J2-Z8-S1-S-lcihaqo-ldo-chaste 100 mg-50 mg- 50 mg-15 mg tabs PO calcium carbonate-vitamin D3 600 mg-10 mcg (400 unit) 1 tab PO BID levothyroxine 175 mcg PO DAILY bynjklza-xvnp-nwgya-oreg-capry 100 mg-150 mg- 50 mg-150 mg caps PO Tobacco use date assessed: 07/19/24 Fall risk assessment: No Falls in past year Last assessed Fall Risk: 07/19/24 Dental Screening Dental Screen Date: 07/19/24 Did you have a dental visit in the last 12 months?: No Did you have a dental problem in the last 6 months where you did not have access to dental care?: Yes Was dental information given to patient?: Yes HPI Annual PE HPI Details History of Present Illness The patient is a 64-year-old female presenting with a scheduled wellness visit. Her medical history includes hydrocephalus, which has been managed with a ventricular peritoneal shunt. She reports stability in her balance, with occasional episodes of an abnormal gait, but no falls or significant issues. Her laboratory work is up to date and recently noted to be excellent. She is scheduled for routine preventive screenings, including a repeat Cologuard test and a mammogram. No acute complaints or new issues were reported during the conversation. The patient's history of a ventricular peritoneal shunt due to hydrocephalus necessitates ongoing neurological follow-up, which she attends regularly. Health Maintenance - Repeat Cologuard test scheduled - Mammogram scheduled - Thyroid function reported as normal - Bone density test ordered Social History Review of Systems - Neurological: Reports occasional abnormal gait - Musculoskeletal: Denies significant balance issues -denies any cp, sob, fevers, chills, n/v, abd pain, blood instool, constipation, diarrhea, denies any SI or HI. Physical Exam General: Cooperative, healthy appearing, comfortable, no acute distress and well developed Orientation: Patient oriented x3 Limitations: No limitations Head: Normal to inspection Ears: Hearing grossly normal bilaterally Nose: Normal external nose present Face and sinus: Normal facial exam Eyes: Appearance normal, both eyes and all related structures Neck: Normal visual inspection and Yes full ROM Respiratory: Normal respiratory effort and able to speak in complete sentences. Clear to auscultation bilaterally Cardiovascular: Regular rate and rhythm. Normal S1 and S2 GI: Normal to inspection. Soft to palpation and nontender Skin: No rashes or lesions noted Neuro: Patient oriented x3, negative Romberg Extremities: Normal to inspection Results - Labs: Impressive recent lab results, specifics not detailed - Tests: Thyroid function normal; Bone density test ordered Plan The patient's health maintenance includes routine screenings such as a repeat Cologuard test and a scheduled mammogram. Additionally, a bone density test has been ordered. The patient's thyroid function is normal based on recent lab results. Given her history of hydrocephalus managed with a ventricular peritoneal shunt, continued neurological evaluation is crucial, especially noting occasional gait abnormalities but overall stable balance. Moving forward, we will monitor her health closely through these planned screenings and her regular neurologist appointments. Discussion Notes I discussed with the patient the importance of maintaining regular health screenings, especially the upcoming Cologuard test and mammogram, to ensure early detection of potential health issues. We reviewed her thyroid function, which remains normal. The bone density test has been ordered to assess her bone health further. I emphasized the importance of continued neurological follow-up due to her history of hydrocephalus and occasional gait abnormalities. The patient understands the rationale behind our health maintenance strategy and agrees with the proposed plan. Patient Instructions - Complete the scheduled Cologuard repeat test. - Attend the upcoming mammogram appointment. - Follow through with the bone density test. - Continue regular neurologist visits for follow-up. - Maintain awareness of balance and report any significant changes. -referred to lung screen program [facility] Medical History Ascending aorta dilatation AAA (abdominal aortic aneurysm) Smoking Hydrocephalus Anxiety and depression Surgical History Status post lumbar spine surgery for decompression of spinal cord Hx of tonsillectomy CONSTRUCTION CONTRACTOR (ventriculoperitoneal) shunt status Family History Mother Colon cancer Substance use disorder Brother Substance use disorder Father Substance use disorder Sister Substance use disorder Mental health disorder Paternal Uncle Substance use disorder Mental health disorder Maternal Uncle Substance use disorder Mental health disorder Social History Housing: House Alcohol intake: never Patient Tobacco Use Status: Current everyday Tobacco user Cigarettes Per Day: 10 e-Cigarette/Vaping Use: Never Used Second Hand Smoke Exposure: No Substance Use Type: Marijuana service: No Current occupational status: retired Gender identity: Female Cognitive needs: No Hearing needs: No Vision needs: No Questionnaire PHQ-9 Over the last 2 weeks, how often have you been bothered by any of the following problems? 1. Little interest or pleasure in doing things: not at all 2. Feeling down, depressed, or hopeless: not at all 3. Trouble falling or staying asleep, or sleeping too much: not at all 4. Feeling tired or having little energy: several days 5. Poor appetite or overeating: several days 6. Feeling bad about yourself - or that you are a failure or have let yourself or your family down: not at all 7. Trouble concentrating on things, such as reading the newspaper or watching television: several days 8. Moving or speaking so slowly that other people could have noticed. Or the opposite - being so fidgety or restless that you have been moving around a lot more than usual: several days 9. Thoughts that you would be better off or of hurting yourself in some way: not at all Total score: 4 Depression Screening Interpretation: Negative Depression Screening Done: Yes 02622 - PHQ-9 Billing: Yes Source: Developed by Drs. Tyrel Chambers, Zuri Chatman, Db Chung and colleagues, with an educational terry from [employer]. Thrive Questionnaire Date Thrive assessed: 07/19/24 What is your living situation today?: I choose not to answer this question Within the past 12 months, did the food you bought not last and you didn't have the money to get more?: I choose not to answer this question Within the past 12 months, did you worry whether your food would run out before you got money to buy more?: I choose not to answer this question Do you have trouble paying for medicines?: I choose not to answer this question Do you have trouble getting transportation to medical appointments?: I choose not to answer this question Do you have trouble paying your heating and electricity bill?: I choose not to answer this question Do you have trouble taking care of your child, family member or friend?: I choose not to answer this question Do you have trouble with day-to-day activities such as bathing, preparing meals, shopping, managing finances, etc.?: I choose not to answer this question Are you currently unemployed and looking for a job?: I choose not to answer this question Are you interested in more education?: I choose not to answer this question THRIVE Score: 0 AUDIT C Alcohol Use Questionnaire (AUDIT-C) 1. How often do you have a drink containing alcohol?: Never 3. How often do you have six or more drinks on one occasion?: Never Total Score: 0 JONG-7 AMB Questionnaire JONG-7 Date JONG - 7 assessed: 07/19/24 Feeling nervous, anxious, or on edge: 0 = Not at all Not being able to stop or control worryin = Not at all Worrying too much about different things: 0 = Not at all Trouble relaxin = Not at all Being so restless that it is hard to sit still: 0 = Not at all Becoming easily annoyed or irritable: 0 = Not at all Feeling afraid as if something awful might happen: 0 = Not at all Total JONG-7 score (0-4 normal; 5-9 mild; 10-14 moderate; 15-21 severe): 0 Source: Developed by Drs. Tyrel Chambers, Zuri Chatman, Db Chung and colleagues, with an educational terry from [employer] JONG-7 Assessment Billing JONG-7 Assessment Tool: JONG-7 Assessment 18595 Physical exam (Primary Care) Vital Signs: Last Vital Signs Temp 98.3 F 07/19/24 09:06 Pulse 63 07/19/24 09:06 Resp 18 07/19/24 09:06 BP 124/72 07/19/24 09:06 Pulse Ox 99 07/19/24 09:06 Oxygen Delivery Method Room Air 07/19/24 09:06 BMI result Body Mass Index 29.7 Tobacco/Smoking Status: Tobacco use Status Tobacco use date assessed 07/19/24 07/19/24 09:12 Patient Tobacco Use Status Current everyday Tobacco 07/19/24 09:12 e-Cigarette/Vaping Use Never Used 07/19/24 09:12 PHQ-9: PHQ-9 Score PHQ-9: Total score 4 07/19/24 09:39 Depression Screening Interpretation: Negative Thrive Assessment: Date of Thrive Assessment Date Thrive assessed 07/19/24 07/19/24 09:12 Immunizations pneumoc 20-marylou conj-dip cr(PF) 0.5 mL IM syringe Performing Provider: TITA Chaudhari [place] [facility] Administered by: EARLENE Boyer on 07/19/24 09:56 Dose Route Admin Location Dispensed Lot Number Expiration Date NDC Journeyman Plumber 0.5 mL IM Left Deltoid 0.5 mL [id number] 04/30/25 [employer] VIS Given Date VIS Provided VIS Publication Date 07/19/24 Single Vaccine 21 Eligibility Eligibility Date Funding Source Not [facility] Eligible 07/19/24 Private Coding Level of Care Code Est Pt Prev Care >65y(27362) Diagnoses Vitamin D deficiency E55.9 Smoking F17.200 Physical exam Z00.00 Additional Codes JONG-7 Assessment Billing - JONG-7 Assessment Tool: JONG-7 Assessment 23695 ([id number]) PHQ-9 - 79221 - PHQ-9 Billing: Yes ([id number]) Assessment & Plan Assessment & Plan (1) Vitamin D deficiency: Code(s): E55.9 - Vitamin D deficiency, unspecified Category: Medical (2) Smoking: Code(s): F17.200 - Nicotine dependence, unspecified, uncomplicated Category: Social Hx (3) Physical exam: Code(s): Z00.00 - Encounter for general adult medical examination without abnormal findings Category: Medical Plan . Orders: Orders XR DEXA axial skeleton Today E55.9 - Vitamin D deficiency, unspecified Referrals Lung Cancer Screening Referral F17.200 - Nicotine dependence, unspecified, uncomplicated
[2024-07-19 09:06] VITALS: BP 124/72; PULSE 63; RESP 18; TEMP 36.8; O2SAT 99; BMI 29.7
--- OUTSIDE RECORDS SUMMARY | 2024-07-19 09:34 | XMS_ITS | Referral Summary ---
Author Organization [facility] Address [address] [place] [address] Care Team Providers Care Director Of Music Therapy Name Role Phone Esau Boyle Primary Care Provider [phone] Allergies Active Allergy Reactions Criticality Noted Date [...] (05/28/2017): Added automatically from request for surgery [id number] Spasticity 03/11/2017 Resolved Problems Problem Noted Date Diagnosed Date Resolved Date Hydrocephalus 04/17/2017 03/10/2018 Assessment & Plan (04/18/2017 11:44 AM EST): 56 y/o female with pmh of longstanding compensated hydrocephalus presenting for FIELD PROJECT MANAGER shunt placement aeb c/o unsteady gait and [...] on file Medical Devices Implanted Type Area Night Clerk Device Identifier Shelf Expiration Date Model / Serial / Lot Hakim Programmable Valve Implanted:Qty: 1 on 04/16/2017 by Dimas Mora MD at [facility] Shunt Right: Mastoid CODMAN 06/27/2021 [id number] / / [id number] Description:In-line valve [facility] Insurance MEDICARE [facility] Advance Directives * Full Code (Latest Code Status on File) Date Activated Date Inactivated Comments 04/16/2017 11:02 AM 04/18/2017 6:38 PM Care Teams Director Of Music Therapy Relationship Specialty Start Date End Date Esau Boyle: [phone] [address] [place] [address] GARRICK Bahena [address] PCP - General 02/26/17
--- OUTSIDE RECORDS SUMMARY | 2024-07-19 09:34 | XMS_ITS | Patient Health Record ---
Author Organization [facility] [place] Address [address] [place] [address] Care Team Providers Care Product Merchandiser Name Role Phone Esau Iglesias Primary Care Provider Unav ailable Rene Michael Unavailable [phone] Allergies Allergen (clinical drug ingredient) Drug/Non Drug [...] Medicare National [employer] [address] [place] [address] [id number] Blanca Palm Self - patient is the insured Medical (General) History Medical History History ICD Code thyroid Measles Mumps Chicken pox Joint implants/screws Surgical History Surgery Date(Month/Year) back surgery 04/18/2015 brain surgery 04/18/2017
--- OUTSIDE RECORDS SUMMARY | 2024-07-19 09:34 | XMS_ITS | Clinical Summary ---
Author Organization [facility] [place] [address] Care Team Providers Care Education Professional Name Role Phone None Primary Care Provider [...] - Influenza standard series) 11/29/2023 Care Teams Education Professional Relationship Specialty Start Date End Date None None PCP - General 11/28/18
--- OUTSIDE RECORDS SUMMARY | 2024-07-19 09:34 | XMS_ITS | Clinical Summary ---
Author Organization [facility] Address [address] [place] [address] Care Team Providers Care Sidewalk Repairer Name Role Phone Esau Boyle Primary Care Provider [phone] Allergies Active Allergy Reactions Criticality Noted Date [...] (05/28/2017): Added automatically from request for surgery [id number] Spasticity 03/11/2017 Resolved Problems Problem Noted Date Diagnosed Date Resolved Date Hydrocephalus 04/17/2017 03/10/2018 Assessment & Plan (04/18/2017 11:44 AM EST): 56 y/o female with pmh of longstanding compensated hydrocephalus presenting for ROUTE RELIEF DRIVER shunt placement aeb c/o unsteady gait and [...] this topic Medical Devices Implanted Type Area Agile Tester Device Identifier Shelf Expiration Date Model / Serial / Lot Hakim Programmable Valve Implanted:Qty: 1 on 04/16/2017 by Dimas Mora MD at [facility] Shunt Right: Mastoid CODMAN 06/27/2021 [id number] / / [id number] Description:In-line valve [facility] Insurance MEDICARE [facility] Advance Directives * Full Code (Latest Code Status on File) Date Activated Date Inactivated Comments 04/16/2017 11:02 AM 04/18/2017 6:38 PM Care Teams Sidewalk Repairer Relationship Specialty Start Date End Date Esau Boyle: [phone] [address] [place] [address] PCP - General 02/26/17
--- OUTSIDE RECORDS SUMMARY | 2024-07-19 09:34 | XMS_ITS | Encounter Summary ---
Author Organization [facility] Address [address] [place] [address] Care Team Providers Care Element Winding Machine Tender Name Role Phone Esau Boyle Primary Care Provider Reason for Visit * Reason Onset Date Comments PAC Patient Request Call Back 08/08/2022 Encounter Details Date Type Department Care Team (Late st Contact Info) Description 08/08/2022 Telephone [facility] Patient Access Center [address] [place] [phone] Telephone Intake, Staff PAC Patient Request Call [...] on filedocumented in this encounter Care Teams Element Winding Machine Tender Relationship Specialty Start Date End Date Esau Boyle [address] [place] [id number] PCP - General 02/26/17 documented as of this encounter
== END 2024-07-19 12:15 | disposition home or self-care (01) ==
LOC: HO.HMCC 09:03
PROVIDERS: PCP Nurse Practitioner Family; Visit Provider Nurse Practitioner Family
DX: Z00.00 Encounter for general adult medical examination without abnormal findings (principal); E55.9 Vitamin D deficiency, unspecified; F17.200 Nicotine dependence, unspecified, uncomplicated; Z23 Encounter for immunization

== ENCOUNTER → 2024-07-19 09:02 | Outpatient (BNVA) | payer MEDICARE, MEDICAID, SELFPAY | PROVIDERS: PCP Nurse Practitioner Family; Visit Provider Nurse Practitioner Family | DX: Z00.00 Encounter for general adult medical examination without abnormal findings (principal); Z23 Encounter for immunization; E55.9 Vitamin D deficiency, unspecified; F17.200 Nicotine dependence, unspecified, uncomplicated; Z71.6 Tobacco abuse counseling | CPT/HCPCS: 90471; 90677; 96127; 99397 ==

== ENCOUNTER 2024-09-21 12:29 | Outpatient (REF) | payer MEDICARE, MEDICAID, SELFPAY ==
--- NOTE | ~2024-09-21 | MM_ITS ---
EXAMINATION: MM SCREENING DIGITAL BREAST TOMOSYNTHESIS, BILATERAL CLINICAL INFORMATION: Screening. Asymptomatic. COMPARISON: Mammography: Comparison is made with available priors TECHNIQUE: Digital breast mammography with tomosynthesis is performed in both the craniocaudal and mediolateral oblique views along with computer-aided detection (CAD). FINDINGS: There are scattered areas of fibroglandular density (ACR BI-RADS breast composition Category b). There are no significant masses, abnormal calcifications, or other abnormalities. MM/MM tomosynthesis screening BI IMPRESSION: No mammographic evidence of malignancy. ASSESSMENT: BI-RADS BI-RADS 1 - Negative RECOMMENDATION: Routine annual mammography screening. 1 year F/U This examination should not preclude the clinical evaluation of a suspicious palpable abnormality. This patient's information was entered into a reminder system with a target due date for their next mammogram. Electronically signed by: Kerri Wyatt DO 10/08/2024 03:13 PM EDT
--- OUTSIDE RECORDS SUMMARY | 2024-09-21 14:32 | XMS_ITS | Clinical Summary ---
Author Organization [facility] Address [address] [place] [address] Care Team Providers Care Advertising Director Name Role Phone Esau Boyle Primary Care [...] (05/28/2017): Added automatically from request for surgery [id number] Spasticity 03/11/2017 Resolved Problems Problem Noted Date Diagnosed Date Resolved Date Hydrocephalus 04/17/2017 03/10/2018 Assessment & Plan (04/18/2017 11:44 AM EST): 56 y/o female with pmh of longstanding compensated hydrocephalus presenting for GROUNDS KEEPER shunt placement aeb c/o unsteady gait and [...] 62 05/25/2023 3:07 PM EST Temperature 35.9 C (96.7 F) 10/06/2022 12:47 PM EDT Respiratory Rate 18 05/25/2023 3:07 PM EST [...] this topic Medical Devices Implanted Type Area Modeling Analyst Device Identifier Shelf Expiration Date Model / Serial / Lot Hakim Programmable Valve Implanted:Qty: 1 on 04/16/2017 by Dimas Mora MD at [facility] Shunt Right: Mastoid CODMAN 06/27/2021 [id number] / / [id number] Description:In-line valve pending sale to [facility] Insurance MEDICARE [facility] Advance Directives * Full Code (Latest Code Status on File) Date Activated Date Inactivated Comments 04/16/2017 11:02 AM 04/18/2017 6:38 PM Care Teams Advertising Director Relationship Specialty Start Date End Date Esau Boyle: [phone] [address] [place] [address] PCP - General 02/26/17
== END 2024-09-21 12:30 | disposition home or self-care (01) ==
LOC: HO.MAMMO 12:29
PROVIDERS: PCP Nurse Practitioner Family; Visit Provider Nurse Practitioner Family
DX: Z12.31 Encounter for screening mammogram for malignant neoplasm of breast (principal)
CPT/HCPCS: 77063; 77067

== ENCOUNTER → 2024-09-21 12:30 | Outpatient (BNV) | payer MEDICARE, MEDICAID, SELFPAY | PROVIDERS: PCP Nurse Practitioner Family; Visit Provider Internal Medicine | DX: Z12.31 Encounter for screening mammogram for malignant neoplasm of breast (principal) | CPT/HCPCS: 77063; 77067 ==

== ENCOUNTER 2025-01-16 13:16 | Outpatient (AMB) | payer MEDICARE, MEDICAID, SELFPAY ==
--- NOTE | 2025-01-16 13:22 | A.OFFPC_ITS ---
Vital Signs 01/16/25 13:23 Height 5 ft 4 in Weight 170 lb BMI 29.2 BP 122/74 Blood Pressure Location Lt brachial Position Sitting Respiration 16 Pulse 57 Pulse Source Pulse Oximeter Pulse Oximetry (%) 98 Oxygen Delivery Method Room Air Intake Visit Reasons: 6 month follow up Associate Consulting Engineer Required: No Accompanied by: Self / Same As Patient Allergies Opioids - Morphine Analogues (OPIOIDS - MORPHINE ANALOGUES) Allergy (Unknown, Verified 01/16/25 13:24) VOMIT/RASH Sulfa (Sulfonamide Antibiotics) (SULFA (SULFONAMIDE ANTIBIOTICS)) Allergy (Unknown, Verified 01/16/25 13:24) RASH, hives Medication List - Last Reconciled 01/16/25 by Esau Boyle, PREMIX CONCRETE BATCHER-BC [id number]-R1-L-ygwlewl-sbp-chaste 100 mg-50 mg- 50 mg-15 mg tabs PO calcium carbonate-vitamin D3 600 mg-10 mcg (400 unit) 1 tab PO BID levothyroxine 175 mcg PO DAILY degzstvx-xuws-crroq-oreg-capry 100 mg-150 mg- 50 mg-150 mg caps PO Tobacco use date assessed: 01/16/25 Fall risk assessment: No Falls in past year Last assessed Fall Risk: 01/16/25 Dental Screening Dental Screen Date: 07/19/24 HPI 6 month follow up HPI Details Chief Complaint The patient presents for a follow-up regarding dyslipidemia. History of Present Illness The patient is a 64-year-old female presenting with a follow-up for dyslipidemia. She denies any chest pain, increased shortness of breath, or blurred vision. However, she reports dizziness and balance issues (baseline) related to her hydrocephalus, for which she has a LEATHER CASE FINISHER shunt in place, i'm very careful The patient is currently at her baseline and doing well. Her cardiovascular examination revealed normal S1 and S2 heart sounds with no carotid bruits. Respiratory examination showed clear lungs bilaterally. Preventative care measures were discussed, including vaccinations that are due. Plans were made for future laboratory tests, including a fasting lipid panel. Social History Health Maintenance - Vaccinations: Due for updates - Laboratory tests: Fasting lipid panel planned Review of Systems - Cardiovascular: Denies chest pain, inc reased shortness of breath - Neurological: Reports dizziness and ba yusuf issues related to hydrocephalus - Visual: Denies blurred vision Physical Exam General: Cooperative, healthy appearing, comfortable, no acute distress and well developed Orientation: Patient oriented x3 Limitations: No limitations Head: Normal to inspection Ears: Hearing grossly normal bilaterally Nose: Normal external nose present Face and sinus: Normal facial exam Eyes: Appearance normal, both eyes and all related structures Neck: Normal visual inspection and Yes full ROM Respiratory: Normal respiratory effort and able to speak in complete sentences. Clear to auscultation bilaterally Cardiovascular: Regular rate and rhythm. Normal S1 and S2. No carotid bruits noted GI: Normal to inspection. Soft to palpation and nontender Skin: No rashes or lesions noted Neuro: Patient oriented x3. Some dizziness/balance issues related to hydrocephalus Extremities: Normal to inspection. No edema Results Plan 1. Dyslipidemia The patient will have a follow-up in six months, with plans to obtain fasting laboratory tests, including a lipid panel, in the near future. 2. Hydrocephalus With Storage Receipt Poster Shunt The patient reports dizziness and balance issues related to her hydrocephalus, which is managed with a LEATHER CASE FINISHER shunt. Discussion Notes I discussed with the patient the importance of managing her dyslipidemia and the need for regular follow-up. We also reviewed her vaccination schedule and planned for a fasting lipid panel. The patient is aware of her hydrocephalus and the associated symptoms, which are managed with a LEATHER CASE FINISHER shunt. Patient Instructions - Schedule a follow-up appointment in si x months. - Obtain fasting laboratory tests, inclu ding a lipid panel, as discussed. - Stay updated with vaccinations as per the schedule. [facility] Medical History Ascending aorta dilatation AAA (abdominal aortic aneurysm) Smoking Hydrocephalus Anxiety and depression Surgical History Status post lumbar spine surgery for decompression of spinal cord Hx of tonsillectomy LEATHER CASE FINISHER (ventriculoperitoneal) shunt status Family History Mother Colon cancer Substance use disorder Brother Substance use disorder Father Substance use disorder Sister Substance use disorder Mental health disorder Paternal Uncle Substance use disorder Mental health disorder Maternal Uncle Substance use disorder Mental health disorder Social History Housing: House Alcohol intake: never Patient Tobacco Use Status: Current everyday Tobacco user Cigarettes Per Day: 10 e-Cigarette/Vaping Use: Never Used Second Hand Smoke Exposure: No Substance Use Type: Marijuana service: No Current occupational status: retired Gender identity: Female Cognitive needs: No Hearing needs: No Vision needs: No Questionnaire Thrive Questionnaire Date Thrive assessed: 07/19/24 JONG-7 AMB Questionnaire JONG-7 Date JONG - 7 assessed: 07/19/24 Source: Developed by Drs. Tyrel Chambers, Zuri Chatman, Db Chung and colleagues, with an educational terry from [employer]. Physical exam (Primary Care) Vital Signs: Last Vital Signs Pulse 57 01/16/25 13:23 Resp 16 01/16/25 13:23 BP 122/74 01/16/25 13:23 Pulse Ox 98 01/16/25 13:23 Oxygen Delivery Method Room Air 01/16/25 13:23 BMI result Body Mass Index 29.2 Tobacco/Smoking Status: Tobacco use Status Tobacco use date assessed 01/16/25 01/16/25 13:27 Patient Tobacco Use Status Current everyday Tobacco 01/16/25 13:27 e-Cigarette/Vaping Use Never Used 01/16/25 13:27 Thrive Assessment: Date of Thrive Assessment Date Thrive assessed 07/19/24 01/16/25 13:27 Coding Level of Care Code Est Pt Level 3 (47152) Diagnoses Dyslipidemia E78.5 Vitamin D deficiency E55.9 Assessment & Plan Assessment & Plan (1) Dyslipidemia: Code(s): E78.5 - Hyperlipidemia, unspecified Category: Medical (2) Vitamin D deficiency: Code(s): E55.9 - Vitamin D deficiency, unspecified Category: Medical Plan . Orders: Orders Complete Blood Count Auto Diff Today E78.5 - Hyperlipidemia, unspecified Comprehensive [place]. Panel Fast Today E78.5 - Hyperlipidemia, unspecified TSH reflex Free T4 Today E78.5 - Hyperlipidemia, unspecified Vitamin D 25-OH Total Today E55.9 - Vitamin D deficiency, unspecified UA CC w/rflx Micro + Cult Today E78.5 - Hyperlipidemia, unspecified Lipid Panel Today E78.5 - Hyperlipidemia, unspecified
[2025-01-16 13:23] VITALS: BP 122/74; PULSE 57; RESP 16; O2SAT 98; BMI 29.2
--- OUTSIDE RECORDS SUMMARY | 2025-01-16 16:14 | XMS_ITS | Clinical Summary ---
Author Organization [facility] [place] [address] Care Team Providers Care Branch Or Department Chief Librarian Name Role Phone None Primary Care Provider Unavailabl e Social History Tobacco Use Types Packs/Day Years Used Date Smoking Tobacco: Never Assessed Comments Unknown Sex and Gender Information Value Date Recorded Sex Assigned at Not on file Legal Sex Female 6:46 PM EDT Gender Identity Not on file Sexual Orientation Not on file Last Filed Vital Signs Vital Sign Reading Time Taken Comments Blood Pressure 125/57 11/28/2018 8:45 PM EDT Pulse 60 11/28/2018 8:45 PM EDT Temperature 36.9 C (98.4 F) 11/28/2018 7:04 PM EDT Respiratory Rate 16 11/28/2018 8:45 PM EDT [...] Density Scan 2023 Covid-19 Vaccine (2023- season) 2024 Influenza (Flu) vaccine (1 o f 1 - Influenza standard series) 11/28/2024 Insurance MEDICARE [place] Care Teams Branch Or Department Chief Librarian Relationship Specialty Start Date End Date None None PCP - General 11/28/18
--- OUTSIDE RECORDS SUMMARY | 2025-01-16 16:14 | XMS_ITS | Clinical Summary ---
Author Organization [facility] Address [address] [place] [address] Care Team Providers Care Senior Oracle Adf Developer Name Role Phone Esau Boyle Primary Care [...] (05/28/2017): Added automatically from request for surgery [id number] Spasticity 03/11/2017 Resolved Problems Problem Noted Date Diagnosed Date Resolved Date Hydrocephalus 04/17/2017 03/10/2018 Assessment & Plan (04/18/2017 11:44 AM EST): 56 y/o female with pmh of longstanding compensated hydrocephalus presenting for FRENCH PASTRY COOK shunt placement aeb c/o unsteady gait and [...] 2008 Zoster Vaccines (1 of 2) 2008 Alcohol/Substance Use Screening 03/30/2024 Depression Screening and Follow-Up 03/30/2024 Health Care Proxy Review 03/30/2024 Social Drivers of Health Annual Screening 03/30/2024 Cologuard 04/16/2024 04/16/2021, 04/16/2021 Colon Cancer Screening 04/16/2024 COVID-19 Vaccine ( season) 2024 01/04/2022, 04/06/2021, 08/28/2020, Additional history exists Influenza Vaccine (#1) 2024 01/04/2022, 2018 DTaP,Tdap,and Td Vaccines (2 - Td or Tdap) 11/28/2031 11/27/2021, 07/19/2002 RSV Vaccine (60+ years old and patients) (1 - 1-dose 75+ series) 2033 Hepatitis B Vaccines Aged Out 10/14/1993, 09/13/18 94 No longer eligible based on patient's age to complete this topic Medical Devices Implanted Type Area Composition Worker Device Identifier Shelf Expiration Date Model / Serial / Lot Hakim Programmable Valve Implanted:Qty: 1 on 04/16/2017 by Dimas Mora MD at [facility] Shunt Right: Mastoid CODMAN 06/27/2021 [id number] / / [id number] Description:In-line valve [facility] Insurance MEDICARE [facility] Advance Directives * Full Code (Latest Code Status on File) Date Activated Date Inactivated Comments 04/16/2017 11:02 AM 04/18/2017 6:38 PM Care Teams Senior Oracle Adf Developer Relationship Specialty Start Date End Date Esau Boyle: [phone] [id number] [place] [address] PCP - General 02/26/17
--- OUTSIDE RECORDS SUMMARY | 2025-01-16 16:14 | XMS_ITS | Encounter Summary ---
Author Organization [facility] Address [address] [place] [address] Care Team Providers Care Application Performance Engineer Name Role Phone Esau Boyle Primary Care Provider Reason for Visit * Reason Onset Date Comments PAC Patient Request Call Back 08/08/2022 Encounter Details Date Type Department Care Team (Late st Contact Info) Description 08/08/2022 Telephone [facility] [address] [place] [id number] Telephone Intake, Staff PAC Patient Request Call [...] on filedocumented in this encounter Care Teams Application Performance Engineer Relationship Specialty Start Date End Date Esau Boyle [address] [place] [id number] PCP - General 02/26/17 documented as of this encounter
--- OUTSIDE RECORDS SUMMARY | 2025-01-16 16:15 | XMS_ITS | Patient Health Record ---
[facility] [place] Address [address] [address] Care Team Providers Care Car Hostler Name Role Phone Esau Iglesias Primary Care Provider Unav rhiannonable Rene Michael Unavailable [phone] Allergies Allergen (clinical drug ingredient) Drug/Non Drug [...] on an empty stomach Orally Once a day; Duration: 30 day(s) Active Social History Tobacco Use: [...] Medicare National Govt [employer] [address] [facility] [place] [address] [id number] Blanca Palm Self - patient is the insured Medical (General) History Medical History History ICD Code thyroid Measles Mumps Chicken pox Joint implants/screws Surgical History Surgery Date(Month/Year) back surgery 04/18/2015 brain surgery 04/18/2017
--- OUTSIDE RECORDS SUMMARY | 2025-01-16 16:15 | XMS_ITS | Encounter Summary ---
Author Organization [facility] Address [address] [place] [phone] Phone Care Team Providers Care Magazine Repairer Name Role Phone Esau Boyle LANDSCAPE CREW LEADER Primary Care Provider + Encounter Details Date Type Department Care Team (Late st Contact Info) Description 03/06/2020 Procedure Pass [facility] Endoscopy Admitting Dept Virtual Department [address] [place] [address] Social History Tobacco Use Types Packs/Day Years Used Date Smoking Tobacco: Every Day Cigarettes Smokeless Tobacco: Never Comments:since age 16 Alcohol Use Standard Drinks/Week Comments Never 0 (1 standard drink = 0.6 oz pur e alcohol) Comments No Sex and Gender Information Value Date Recorded Sex Assigned at Not on file Legal Sex Female 9:50 PM EDT Gender Identity Not on file Sexual Orientation Not on file documented as of this encounter Plan of Treatment Not on file documented as of this encounter Visit Diagnoses Not on filedocumented in this encounter Care Teams Magazine Repairer Relationship Specialty Start Date End Date Esau Boyle NP [facility] [place] [address] PCP - General Family Medicine 03/06/20 documented as of this encounter Additional Source Comments The information contained in this document represents components of the legal health record. It is not the complete legal health record.[facility]
--- OUTSIDE RECORDS SUMMARY | 2025-01-16 16:16 | XMS_ITS | Clinical Summary ---
Author Organization [facility] Address [address] [place] [address] Phone Care Team Providers Care Forging Die Finisher Name Role Phone Esau Boyle COMMUNITY RELATIONS ADVISOR Primary Care Provider + Allergies Active Allergy Reactions Criticality Noted Date Comments Opioids - Morphine Analogues Hives,Shortness Of Breath,Nausea and/or Vomiting High 03/05/2020 Sulfa (Sulfonamide Antibiotics) Hives 03/05/2020 Medications levothyroxine (SYNTHROID, LEVOTHROID) 125 MCG tablet Take 125 mcg by mouth every morning. Active Medication-Free Text Take 1 capsule by mouth daily. Total restore Active Social History Tobacco Use Types Packs/Day Years Used Date Smoking Tobacco: Every Day Cigarettes Smokeless Tobacco: Never Comments:since age 16 Alcohol Use Standard Drinks/Week Comments Never 0 (1 standard drink = 0.6 oz pur e alcohol) Education Answer Date Recorded Are you interested in more education? Not on nabeel e 07/25/2022 Are you concerned about learning? Not on file 07/25/2022 No 07/25/2022 No 07/25/2022 Digital Access Answer Date Recorded No 08/23/2022 No 08/23/2022 Reliable internet access at home? Not on file 08/23/2022 Device with a working camera? Not on file Comments No Sex and Gender Information Value Date Recorded Sex Assigned at Not on file Legal Sex Female 9:50 PM EDT Gender Identity Not on file Sexual Orientation Not on file Last Filed Vital Signs Vital Sign Reading Time Taken Comments Blood Pressure 136/64 03/06/2020 9:48 AM EST Pulse 57 03/06/2020 9:35 AM EST Temperature 36 C (96.8 F) 03/06/2020 9:48 AM EST Respiratory Rate 18 03/06/2020 9:48 AM EST Oxygen Saturation 100% 03/06/2020 9:48 AM EST Inhaled Oxygen Concentration 21% 03/06/2020 9 :35 AM EST Weight 65.8 kg (145 lb) 03/05/2020 8:39 AM EST Height 162.6 cm (5' 4 ) 03/05/2020 8:39 AM EST Body Mass Index 24.89 03/05/2020 8:39 AM EST Plan of Treatment Health Maintenance Due Date Last Done Comments Adult Td,Tdap Booster 1960 LIPID PANEL 1958 TSH LEVEL 1958 DEPRESSION SCREENING 1970 SMOKING Hx and SMOKELESS TOBACCO SCREENING 1971 HEPATITIS C SCREENING 1976 PNEUMOCOCCAL VACCINES (50+ years) (1 of 2 - PCV) 1977 MAMMOGRAM 1998 COLOGUARD 2003 FIT TEST 2003 FOBT 2003 SIGMOIDOSCOPY 2003 VIRTUAL COLONOSCOPY 2003 ZOSTER VACCINES (1 of 2) 2008 OSTEOPOROSIS SCREENING INITI AL (ONE-TIME) 2023 INFLUENZA VACCINE (#1) 2024 01/12/2019 COVID-19 VACCINE (3 - 2024-2 6 season) 2024 08/28/2020, 07/27/2020 COLONOSCOPY 03/06/2030 03/06/2020 COLORECTAL CANCER SCREENING 03/06/2030 RSV VACCINE (1 - 1-dose 75+ series) 2033 HEPATITIS A VACCINES Aged Out No long er eligible based on patient's age to complete this topic HIB VACCINES Aged Out No longer eligi ble based on patient's age to complete this topic MENINGOCOCCAL VACCINES (ACWY) Aged Out No longer eligible based on patient's age to complete this topic MENINGOCOCCAL VACCINES (B) Aged Out N o longer eligible based on patient's age to complete this topic Medical Devices Implanted Type Area Supervisor [employer] Device Identifier Shelf Expiration Date Model / Serial / Lot Nodata NODATA Back Description:rods Shunt Shunt Description:For hydrocephalu s Procedures Procedure Name Priority Date/Time Associated Diagnosis Comments ENDOSCOPY, COLON 03/06/2020 9:20 AM EST from Last 3 Months or Most Recently Relevant to Health Maintenance Results * ENDOSCOPY, COLON (03/06/2020 9:20 AM EST) Narrative Transcriptions Adolfo Hollis MD - 03/06/2020 9:20 AM EST Patient Name: Blanca Palm Attending MD:: ADOLFO HOLLIS MD Procedure Date: 03/06/2020 9:20 AM Date of : 1960 Age: 59 Admit Type: Outpatient Gender: Female Room: [place] [address] Referring MD: Esau Boyle Exam Type: Colonoscopy Indications: Screening in patient at increased risk: Familyhistory of 1st-degree relative with colorectal cancer, High risk colon cancer surveillance: Personal history of colonic polyps, Last colonoscopy 5 years ago Medications: None Procedure: Informed consent was obtained from the patient after discussion of the indications, limitations, alternatives, benefits, and risks of the procedure. Risks specifically discussed include but are not limited to medication reactions, missed lesions, bleeding, perforation, or the need for emergentsurgery. Throughout the procedure, the patient's bloodpressure, pulse, end-tidal CO2, and oxygen saturations were monitored continuously. The Olympus adult variable colonoscope [id number] #6was introduced through the anus and advanced to the terminal ileum, with identification of theappendiceal orifice and IC valve. The colonoscopy was performed without difficulty. The patient tolerated theprocedure well. The quality of the bowel preparation was inadequate. Complications: No immediate complications. Estimated blood loss:None. Findings: The terminal ileum appeared normal. Examination of the right colon was repeated in retroflexion. NBI exam was deferred as prep was inadequate. Retroflexion was also performed in the rectum. A moderate amount of semi-liquid stool was found inthe entire colon, precluding visualization and notamenable to suction (numerous suction port clogs occured with even cursory exam). Impression: - Preparation of the colon was inadequate. - The examined portion of the ileum was normal. - Stool in the entire examined colon. - No specimens collected. Recommendation: - Patient has a contact number available for emergencies. The signs and symptoms of potential delayed complications were discussed with thepatient. Return to normal activities tomorrow. Writtendischarge instructions were provided to the patient. - Repeat colonoscopy at next available appointment (within 3 months) because the bowel preparation was poor. She used 2L miralax gatorade prep this time and previously had vomiting with golytely. I would recommend a larger volume of miralax/gatorade prep, like 4L for the next attempt. Adolfo Hollis ADOLFO HOLLIS MD 03/06/2020 9:48:16 AM This report has been signed electronically. Number of Addenda: 0 Note Initiated On: 03/06/2020 9:20 AM Procedure Code(s): --- Professional --- 19320, Colonoscopy, flexible; diagnostic, including collection of specimen(s) by brushing or washing, when performed (separateprocedure) --- Technical --- 31218, Colonoscopy, flexible; diagnostic, including collection of specimen(s) by brushing or washing, when performed (separateprocedure) CPT copyright 2018 [employer]. All rights reserved. The codes documented in this report are preliminary and upon churn driller helper reviewmay be revised to meet current compliance requirements. Procedure Date: 03/06/2020 9:20:[address] [place] [id number] Esau Boyle NP GI PROCEDURE ORDERABLES Edited Result - Final from Last 3 Months or Most Recently Relevant to Health Maintenance Insurance MEDICARE PART A & B [employer] [facility] PARTIAL MEDICARE PART A & B [employer] [facility] PARTIAL MEDICARE PART A & B [employer] PARTIAL MEDICARE PART A & B [employer] PARTIAL PARTIAL MEDICARE PART A & B HE[employer] NET PARTIAL MEDICARE PART A & B HEALTH SAFETY NET PARTIAL MEDICARE PART A & B [employer] S[employer] NET PARTIAL MEDICARE PART A & B [employer] SAF[employer] NET PARTIAL Care Teams Forging Die Finisher Relationship Specialty Start Date End Date Esau Boyle NP [address] [place] [address] PCP - General Family Medicine 03/06/20 Additional Source Comments The information contained in this document represents components of the legal health record. It is not the complete legal health record.[facility]
== END 2025-01-16 14:07 | disposition home or self-care (01) ==
LOC: HO.HMCC 13:17
PROVIDERS: PCP Nurse Practitioner Family; Visit Provider Nurse Practitioner Family
DX: E78.5 Hyperlipidemia, unspecified (principal); E55.9 Vitamin D deficiency, unspecified

== ENCOUNTER → 2025-01-16 13:16 | Outpatient (BNVA) | payer MEDICARE, MEDICAID, SELFPAY | PROVIDERS: PCP Nurse Practitioner Family; Visit Provider Nurse Practitioner Family | DX: R42 Dizziness and giddiness (principal); E78.5 Hyperlipidemia, unspecified; E55.9 Vitamin D deficiency, unspecified; G91.9 Hydrocephalus, unspecified; Z96.89 Presence of other specified functional implants | CPT/HCPCS: 99212 ==